=== PATIENT | male | born 1945 | race Caucasian/White ===

== ENCOUNTER → 2018-12-02 11:29 | Outpatient (CLI) | payer MEDICARE, OTHER, SELFPAY ==
--- NOTE | 2018-12-02 | DI.US.S_ITS ---
PROCEDURE: US ABD AORTA ANEURYSM SCREEN INDICATIONS: SCREENING TECHNIQUE: Real time scanning was performed of the aorta and iliac arteries, with image documentation. COMPARISON: None. FINDINGS: Aorta: Proximal aorta is not well-seen. Mid-aorta measures 1.9 cm. Distal aortic diameter is 1.6 cm. Iliac arteries: Right common iliac artery measures 1.0 cm. Left common iliac artery measures 1.1 cm. IMPRESSION: Unremarkable exam, noting proximal aorta is not visualized. Dictated by: Devika Ford M.D. on 12/02/2018 at 14:40 Approved by: Devika Ford M.D. on 12/02/2018 at 14:42
[2018-12-02 14:31] LABS: Alanine Aminotransferase 40 IU/L (21-72); Aspartate Aminotransferase 31 IU/L (17-59); BUN Creatinine Ratio 16.7 (6-22); Blood Urea Nitrogen 20 mg/dL (9-20); Calcium 9.7 mg/dL (8.4-10.2); Carbon Dioxide 31 mmol/L (22-32); Chloride 100 mmol/L (98-107); Cholesterol 147 mg/dL (140-199); Estimated Glomerular Filt Rate 59.3 mL/min (>60); Glucose 96 mg/dL (80-110); HDL Cholesterol 29 mg/dL (40-60); HEMOLYSIS < 15 (0-50); LDL Cholesterol Calculated 82 mg/dL (<100); Potassium 4.7 mmol/L (3.4-5.1); Sodium 139 mmol/L (137-145); Triglycerides 179 mg/dL (35-150)
[2018-12-02 15:03] LABS: Prostate Specific Antigen Scrn 0.672 ng/mL (0.1-4.0)
== END ==
PROVIDERS: PCP Internal Medicine; Visit Provider Internal Medicine
DX: Z13.6 Encounter for screening for cardiovascular disorders (principal); N18.3 Chronic kidney disease, stage 3 (moderate); E78.2 Mixed hyperlipidemia; Z12.5 Encounter for screening for malignant neoplasm of prostate
CPT/HCPCS: 36415; 76706; 80048; 80061; 84450; 84460; G0103

== ENCOUNTER → 2020-02-23 19:37 | Outpatient (ROUT) | payer MEDICARE, OTHER, SELFPAY ==
[2020-02-23 20:05] LABS: Alanine Aminotransferase 26 IU/L (<50); Albumin 4.2 g/dL (3.5-5.0); Albumin Globulin Ratio 1.7 (1.0-2.8); Alkaline Phosphatase 75 U/L (38-126); Aspartate Aminotransferase 37 IU/L (17-59); BUN Creatinine Ratio 17.8 (6-22); Bilirubin Total 0.8 mg/dL (0.2-1.3); Blood Urea Nitrogen 21 mg/dL (9-20); Calcium 9.7 mg/dL (8.4-10.2); Carbon Dioxide 28 mmol/L (22-32); Chloride 100 mmol/L (98-107); Cholesterol 162 mg/dL (140-199); Estimated Glomerular Filt Rate > 60.0 mL/min (>60); Globulin 2.5 g/dL (1.7-4.1); Glucose 111 mg/dL (80-110); HDL Cholesterol 29 mg/dL (40-60); HEMOLYSIS < 15 (0-50); LDL Cholesterol Calculated 90 mg/dL (<100); Potassium 3.9 mmol/L (3.4-5.1); Sodium 136 mmol/L (137-145); Total Protein 6.7 g/dL (6.3-8.2); Triglycerides 215 mg/dL (35-150)
[2020-02-25 07:14] LABS: PSA, Total 0.8 ng/mL (0.0-4.0)
== END ==
PROVIDERS: PCP Internal Medicine; Visit Provider Internal Medicine
DX: Z12.5 Encounter for screening for malignant neoplasm of prostate (principal); I10 Essential (primary) hypertension; E78.2 Mixed hyperlipidemia
CPT/HCPCS: 80053; 80061; 84153; 84154

== ENCOUNTER → 2020-10-25 13:22 | Outpatient (CLI) | payer MEDICARE, OTHER, SELFPAY ==
[2020-10-25 14:56] LABS: BUN Creatinine Ratio 12.4 (6-22); Blood Urea Nitrogen 15 mg/dL (9-20); Calcium 9.6 mg/dL (8.4-10.2); Carbon Dioxide 35 mmol/L (22-32); Chloride 100 mmol/L (98-107); Estimated Glomerular Filt Rate 58.5 mL/min (>60); Glucose 100 mg/dL (80-110); HEMOLYSIS 16 (0-50); Potassium 4.3 mmol/L (3.4-5.1); Sodium 138 mmol/L (137-145)
== END ==
PROVIDERS: PCP Internal Medicine; Referring Provider Nurse Practitioner; Visit Provider Nurse Practitioner
DX: R60.9 Edema, unspecified (principal); Z95.2 Presence of prosthetic heart valve
CPT/HCPCS: 36415; 80048

== ENCOUNTER → 2021-03-14 09:20 | Outpatient (CLI) | payer MEDICARE, OTHER, SELFPAY ==
[2021-03-14 10:27] LABS: Alanine Aminotransferase 23 IU/L (<50); Albumin 4.1 g/dL (3.5-5.0); Albumin Globulin Ratio 1.4 (1.0-2.8); Alkaline Phosphatase 72 U/L (38-126); Aspartate Aminotransferase 31 IU/L (17-59); Bilirubin Total 0.8 mg/dL (0.2-1.3); Blood Urea Nitrogen 16 mg/dL (9-20); Calcium 9.4 mg/dL (8.4-10.2); Carbon Dioxide 31 mmol/L (22-32); Chloride 102 mmol/L (98-107); Cholesterol 157 mg/dL (140-199); Estimated Glomerular Filt Rate > 60.0 mL/min (>60); Glucose 115 mg/dL (80-110); HDL Cholesterol 33 mg/dL (40-60); HEMOLYSIS 17 (0-50); LDL Cholesterol Calculated 86 mg/dL (<100); Potassium 4.2 mmol/L (3.4-5.1); Sodium 138 mmol/L (137-145); Total Protein 7.1 g/dL (6.3-8.2); Triglycerides 192 mg/dL (35-150)
== END ==
PROVIDERS: PCP Internal Medicine; Referring Provider Internal Medicine; Visit Provider Internal Medicine
DX: E78.5 Hyperlipidemia, unspecified (principal); Z12.5 Encounter for screening for malignant neoplasm of prostate; I10 Essential (primary) hypertension
CPT/HCPCS: 36415; 80053; 80061; 84153; G0103

== ENCOUNTER → 2021-09-12 13:36 | Outpatient (CLI) | payer MEDICARE, OTHER, SELFPAY ==
[2021-09-12 16:05] LABS: BUN Creatinine Ratio 13.7 (6-22); Blood Urea Nitrogen 16 mg/dL (9-20); Calcium 9.8 mg/dL (8.4-10.2); Carbon Dioxide 36 mmol/L (22-32); Chloride 96 mmol/L (98-107); Estimated Glomerular Filt Rate > 60.0 mL/min (>60); Glucose 96 mg/dL (80-110); HEMOLYSIS < 15 (0-50); Potassium 4.3 mmol/L (3.4-5.1); Sodium 137 mmol/L (137-145)
== END ==
PROVIDERS: PCP Internal Medicine; Referring Provider Nurse Practitioner; Visit Provider Nurse Practitioner
DX: I25.10 Atherosclerotic heart disease of native coronary artery without angina pectoris (principal)
CPT/HCPCS: 36415; 80048

== ENCOUNTER 2022-04-06 13:43 | Observation (INO) | payer MEDICARE, OTHER, SELFPAY ==
[2022-04-06 13:54] VITALS: BP 129/82; PULSE 78; RESP 18; TEMP 36.7; O2SAT 94; BMI 34.9
--- NOTE | 2022-04-06 14:17 | DI.CT.S_ITS ---
PROCEDURE: CT HEAD/BRAIN WO CON INDICATIONS: Falls TECHNIQUE: Noncontrast 4.5 mm thick angled axial sections acquired from the foramen magnum to the vertex, with coronal and sagittal reformats. For radiation dose reduction, the following was used: automated exposure control, adjustment of mA and/or kV according to patient size. COMPARISON: None. FINDINGS: Image quality: Degraded by patient motion artifact CSF spaces: Basal cisterns are patent. No extra-axial fluid collections. The ventricles are symmetric in size and shape. Brain: No intracranial bleeds or masses. There is cerebral volume loss for age, with resultant ventricular and sulcal prominence. There are periventricular and deep white matter chronic small vessel ischemic changes. 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 There is intracranial internal carotid artery and vertebral artery atherosclerosis. Skull and face: Calvarium and visualized facial bones appear intact, without suspicious lesions. Sinuses: Visualized sinuses and mastoids are clear. IMPRESSION: No acute intracranial disease process. Dictated by: Magda Stone MD, PhD on 04/06/2022 at 15:32 Approved by: Magda Stone MD, PhD on 04/06/2022 at 15:33
--- NOTE | 2022-04-06 14:17 | DI.RAD.S_ITS ---
PROCEDURE: XR CHEST 1V INDICATIONS: chest pain TECHNIQUE: One view of the chest was acquired. COMPARISON: [facility], CT, CT HEAD/BRAIN WO CON, 04/06/2022, 14:56. [facility], CR, CHEST 2 VIEW, 02/19/2014, 18:19. [facility], CR, CHEST 2 VIEW, 03/25/2015, 15:21. FINDINGS: Surgical changes and devices: Sternotomy wires are seen. Lungs and pleura: On this semiupright portable chest examination, no large pneumothorax can be seen. There is blunting of the costophrenic angles, left worse than right. Generalized interstitial prominence can be seen. Low lung volumes are noted. This causes a crowded appearance to the lung markings and limits evaluation. Mediastinum: Mediastinal contours appear normal. Heart size is moderately enlarged. Atherosclerotic calcification of the aortic arch is noted. Bones and chest wall: No suspicious bony lesions. Age-appropriate bony degenerative changes are seen. Overlying soft tissues appear unremarkable. IMPRESSION: Moderate cardiomegaly with interstitial prominence and pleural effusions. Please correlate with patient presentation, physical examination findings, and laboratory values for congestive heart failure. Dictated by: Chong Araiza M.D. on 04/06/2022 at 15:45 Approved by: Chong Araiza M.D. on 04/06/2022 at 15:46
[2022-04-06 14:31] LABS: Add Manual Diff / Slide Review NO; Basophils Absolute Auto 100 /uL (0-100); Basophils Percent Auto 0.5 % (0-2); Eosinophils Absolute Auto 300 /uL (0-450); Eosinophils Percent Auto 2.3 % (2-4); Hematocrit 47.9 % (41-53); Hemoglobin 15.9 g/dL (13.5-17.5); Lymphocytes Absolute Auto 1300 /uL (1100-4500); Lymphocytes Percent Auto 11.7 % (25-40); Mean Corpuscular HGB Conc 33.1 % (30-36); Mean Corpuscular Hemoglobin 28.4 PG (26-34); Mean Corpuscular Volume 85.9 fL (80-100); Monocytes Absolute Auto 1600 /uL (0-900); Monocytes Percent Auto 14.3 % (3-14); Neutrophils Absolute Auto 8000 /uL (1500-7000); Neutrophils Percent Auto 71.2 % (50-75); Platelet Count 129 X10^3/uL (150-400); Red Blood Cell Count 5.58 X10^6/uL (4.5-5.9); White Blood Cell Count 11.2 X10^3/uL (4.5-11.0)
[2022-04-06 14:39] LABS: COVID19 -Nasal RAPID Negative (Negative)
[2022-04-06 14:44] LABS: Alanine Aminotransferase 28 IU/L (<50); Albumin 4.2 g/dL (3.5-5.0); Albumin Globulin Ratio 1.3 (1.0-2.8); Alkaline Phosphatase 80 U/L (38-126); Aspartate Aminotransferase 91 IU/L (17-59); BUN Creatinine Ratio 15.4 (6-22); Bilirubin Total 1.1 mg/dL (0.2-1.3); Blood Urea Nitrogen 23 mg/dL (9-20); Calcium 8.8 mg/dL (8.4-10.2); Carbon Dioxide 30 mmol/L (22-32); Chloride 98 mmol/L (98-107); Estimated Glomerular Filt Rate 48 mL/min (>60); Globulin 3.2 g/dL (1.7-4.1); Glucose 124 mg/dL (80-110); HEMOLYSIS < 15 (0-50); Lipase 59 U/L (23-300); Magnesium 2.3 mg/dL (1.6-2.3); Potassium 4.1 mmol/L (3.4-5.1); Sodium 134 mmol/L (137-145); Total Protein 7.4 g/dL (6.3-8.2)
[2022-04-06 14:54] LABS: Troponin I 0.099 ng/mL (0.01-0.034)
[2022-04-06 15:01] LABS: Creatine Kinase 7057 U/L (55-170)
[2022-04-06 15:16] LABS: CKMB % Relative Index 0.1 % (1.5-5.0); Creatine Kinase MB 5.32 ng/mL (<2.37)
[2022-04-06] MEDS: SODIUM CHLORIDE 0.9% 1,000 ML 1000 ML IV (15:46)
[2022-04-06 15:55] VITALS: O2SAT 95
[2022-04-06 15:56] VITALS: BP 111/56; PULSE 73; RESP 25; O2SAT 95
[2022-04-06 16:00] VITALS: BP 115/58; PULSE 70; RESP 30; O2SAT 95
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
[2022-04-06 17:16] LABS: Troponin I 0.077 ng/mL (0.01-0.034)
[2022-04-06 17:44] LABS: NT-proBNP (BNP-Adult 18+) 1970 pg/mL (<450)
[2022-04-06] MEDS: SODIUM CHLORIDE 0.9% 1,000 ML 150 ML IV (18:17)
[2022-04-06 18:20] VITALS: BMI 34.9
[2022-04-06 18:52] VITALS: BMI 34.9
[2022-04-06 19:45] VITALS: BP 156/94; PULSE 76; RESP 20; TEMP 36.6; O2SAT 94
[2022-04-06] MEDS: carvediloL 3.125 MG TABLET 6.25 MG PO (20:31)
[2022-04-06] MEDS: HEPARIN 5,000 UNIT/ML VIAL 5000 UNIT SUBCUT (20:31)
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
[2022-04-07 04:01] VITALS: BP 136/74; PULSE 81; RESP 22; TEMP 36.9; O2SAT 95
[2022-04-07 04:24] VITALS: O2SAT 98
[2022-04-07] MEDS: ALBUTEROL/IPRATROPIUM 3 ML AMPUL INH (04:24)
[2022-04-07 06:02] LABS: Add Manual Diff / Slide Review NO; Basophils Absolute Auto 100 /uL (0-100); Basophils Percent Auto 0.8 % (0-2); Eosinophils Absolute Auto 400 /uL (0-450); Hematocrit 46.6 % (41-53); Hemoglobin 15.5 g/dL (13.5-17.5); Lymphocytes Absolute Auto 1200 /uL (1100-4500); Lymphocytes Percent Auto 14.1 % (25-40); Mean Corpuscular HGB Conc 33.2 % (30-36); Mean Corpuscular Hemoglobin 28.6 PG (26-34); Monocytes Absolute Auto 1100 /uL (0-900); Monocytes Percent Auto 13.2 % (3-14); Neutrophils Absolute Auto 5700 /uL (1500-7000); Neutrophils Percent Auto 66.9 % (50-75); Platelet Count 121 X10^3/uL (150-400); Red Blood Cell Count 5.41 X10^6/uL (4.5-5.9); Red Cell Distribution Width 14.8 % (11.6-14.8); White Blood Cell Count 8.5 X10^3/uL (4.5-11.0)
[2022-04-07 06:13] LABS: BUN Creatinine Ratio 18.1 (6-22); Blood Urea Nitrogen 23 mg/dL (9-20); Calcium 8.8 mg/dL (8.4-10.2); Carbon Dioxide 29 mmol/L (22-32); Chloride 101 mmol/L (98-107); Estimated Glomerular Filt Rate 58 mL/min (>60); Glucose 100 mg/dL (80-110); HEMOLYSIS < 15 (0-50); Potassium 3.9 mmol/L (3.4-5.1); Sodium 135 mmol/L (137-145)
[2022-04-07 06:23] LABS: Troponin I 0.058 ng/mL (0.01-0.034)
[2022-04-07 08:16] VITALS: BP 154/102; PULSE 78
[2022-04-07] MEDS: FUROSEMIDE 20 MG TABLET PO (08:16)
[2022-04-07] MEDS: carvediloL 3.125 MG TABLET 6.25 MG PO (08:16)
[2022-04-07] MEDS: ASPIRIN EC 81 MG TABLET PO (08:16)
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
--- NOTE | 2022-04-07 09:39 | PC.NURSE ---
Day shift: paperwork signed and all questions answered. Has all personal belongings. No new MD scripts. Taken to car via WC by this senior mortgage underwriter at approx 0930. Pt is driving himself home. Denies any chest pain or nausea.
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
== END 2022-04-07 09:41 | disposition home or self-care (01) ==
LOC: ED 17:47 → AC 18:05
PROVIDERS: Family Medicine; Admitting Provider Student in an Organized Health Care Education/Training Program; Emergency Provider Emergency Medicine; PCP Internal Medicine; Referring Provider Emergency Medicine; Visit Provider Student in an Organized Health Care Education/Training Program
DX: M62.82 Rhabdomyolysis (principal); N17.9 Acute kidney failure, unspecified; R77.8 Other specified abnormalities of plasma proteins; I10 Essential (primary) hypertension; R29.6 Repeated falls; Z95.2 Presence of prosthetic heart valve; Z20.822 Contact with and (suspected) exposure to COVID-19
CPT/HCPCS: 36415; 70450; 71045; 80048; 80053; 82550; 82553; 83690; 83735; 83880; 84484; 85025; 87635; 93005; 94640; 94660; 94762; 96360; 96361; 96365; 99285; C9803; G0378; J1644

== ENCOUNTER → 2023-04-04 11:50 | Outpatient (CLI) | payer MEDICARE, OTHER, SELFPAY ==
--- NOTE | 2023-04-04 11:55 | DI.RAD.S_ITS ---
PROCEDURE: XR KNEE RT 3V INDICATIONS: Right knee swelling TECHNIQUE: 3 views of the knee were acquired. COMPARISON: None. FINDINGS: Bones: No fractures or dislocations. No suspicious bony lesions. Mild osteoarthritic changes. Soft tissues: No joint effusion. Severe atherosclerotic calcifications. Prepatellar soft tissue swelling. IMPRESSION: 1. Mild osteoarthritis. 2. Prepatellar soft tissue swelling. Dictated by: Brisa Mayorga M.D. on 04/04/2023 at 15:06 Approved by: Brisa Mayorga M.D. on 04/04/2023 at 15:08
== END ==
PROVIDERS: Referring Provider Nurse Practitioner Family; Visit Provider Nurse Practitioner Family
DX: M17.11 Unilateral primary osteoarthritis, right knee (principal); M25.461 Effusion, right knee
CPT/HCPCS: 73562

== ENCOUNTER → 2023-06-05 07:27 | Outpatient (CLI) | payer MEDICARE, OTHER, SELFPAY ==
[2023-06-05 08:27] LABS: Hemoglobin A1C% w Est Avg Glu 6.5 % (4.0-6.0)
[2023-06-05 08:48] LABS: Alanine Aminotransferase 26 IU/L (<50); Albumin Globulin Ratio 1.6 (1.0-2.8); Alkaline Phosphatase 63 U/L (38-126); Aspartate Aminotransferase 26 IU/L (17-59); BUN Creatinine Ratio 14.4 (6-22); Bilirubin Total 0.7 mg/dL (0.2-1.3); Blood Urea Nitrogen 16 mg/dL (9-20); Calcium 9.3 mg/dL (8.4-10.2); Carbon Dioxide 31 mmol/L (22-32); Chloride 101 mmol/L (98-107); Cholesterol 176 mg/dL (140-199); Estimated Glomerular Filt Rate > 60 mL/min (>60); Globulin 2.5 g/dL (1.7-4.1); Glucose 111 mg/dL (80-110); HDL Cholesterol 36 mg/dL (40-60); HEMOLYSIS < 15 (0-50); LDL Cholesterol Calculated 109 mg/dL (<100); Potassium 4.1 mmol/L (3.4-5.1); Sodium 138 mmol/L (137-145); Total Protein 6.5 g/dL (6.3-8.2); Triglycerides 157 mg/dL (35-150)
== END ==
PROVIDERS: PCP Physician Assistant; Referring Provider Physician Assistant; Visit Provider Physician Assistant
DX: R73.09 Other abnormal glucose (principal); E78.2 Mixed hyperlipidemia; N18.31 Chronic kidney disease, stage 3a
CPT/HCPCS: 36415; 80053; 80061; 83036

== ENCOUNTER 2023-06-20 11:15 | Inpatient (IN) | payer MEDICARE, OTHER, SELFPAY ==
[2023-06-20] VITALS (24 sets, daily range): BP systolic 116–170; BP diastolic 56–87; PULSE 67–76; RESP 16–29; TEMP 36–36.6; O2SAT 92–96; BMI 34.9
--- NOTE | 2023-06-20 11:25 | DI.RAD.S_ITS ---
PROCEDURE: XR CHEST 1V INDICATIONS: Possible stroke TECHNIQUE: One view of the chest was acquired. COMPARISON: [facility], CR, XR CHEST 1V, 04/06/2022, 15:03. FINDINGS: Surgical changes and devices: Status post median sternotomy. Lungs and pleura: Lungs are clear. No pleural effusions or pneumothorax. Mediastinum: Mediastinal contours appear normal. Heart size is enlarged. Bones and chest wall: No suspicious bony lesions. Overlying soft tissues appear unremarkable. IMPRESSION: Portable chest within normal limits for age. Dictated by: Eloy Mcgraw M.D. on 06/20/2023 at 12:08 Approved by: Eloy Mcgraw M.D. on 06/20/2023 at 12:11
--- NOTE | 2023-06-20 11:25 | DI.CT.S_ITS ---
PROCEDURE: CT HEAD/BRAIN WO CON INDICATIONS: slurred speech TECHNIQUE: Noncontrast 4.5 mm thick angled axial sections acquired from the foramen magnum to the vertex, with coronal and sagittal reformats. For radiation dose reduction, the following was used: automated exposure control, adjustment of mA and/or kV according to patient size. COMPARISON: [facility], CR, XR CHEST 1V, 06/20/2023, 11:28. [facility], CT, HEAD WITHOUT CONTRAST, 02/19/2014, 20:01. [facility], CT, CT HEAD/BRAIN WO CON, 04/06/2022, 14:56. FINDINGS: Image quality: This examination is limited by involuntary motion artifact. CSF spaces: Basal cisterns are patent. No extra-axial fluid collections. The ventricles are symmetric in size and shape. Brain: No intracranial bleeds or masses. There is cerebral volume loss for age, with resultant ventricular and sulcal prominence. There are periventricular and deep white matter chronic small vessel ischemic changes. There is intracranial internal carotid artery atherosclerosis. Skull and face: Calvarium and visualized facial bones appear intact, without suspicious lesions. Sinuses: Visualized sinuses and mastoids are clear. IMPRESSION: No jason acute abnormality is seen on this noncontrast head CT. No acute intracranial hemorrhage is seen. If there is strong clinical suspicion for an acute stroke, please consider a brain MRI for further evaluation, as it is more sensitive (assuming that there is no contraindication to MRI). Dictated by: Chong Araiza M.D. on 06/20/2023 at 10:52 Approved by: Chong Araiza M.D. on 06/20/2023 at 10:53
[2023-06-20 11:48] LABS: Add Manual Diff / Slide Review NO; Basophils Absolute Auto 0 /uL (0-100); Basophils Percent Auto 0.5 % (0-2); Eosinophils Absolute Auto 200 /uL (0-450); Eosinophils Percent Auto 2.7 % (2-4); Hematocrit 49.6 % (41-53); Hemoglobin 16.9 g/dL (13.5-17.5); Lymphocytes Absolute Auto 1500 /uL (1100-4500); Lymphocytes Percent Auto 17.5 % (25-40); Mean Corpuscular HGB Conc 34.1 % (30-36); Mean Corpuscular Hemoglobin 29.2 PG (26-34); Mean Corpuscular Volume 85.6 fL (80-100); Monocytes Absolute Auto 900 /uL (0-900); Monocytes Percent Auto 10.6 % (3-14); Neutrophils Absolute Auto 5700 /uL (1500-7000); Neutrophils Percent Auto 68.7 % (50-75); Platelet Count 148 X10^3/uL (150-400); Red Blood Cell Count 5.79 X10^6/uL (4.5-5.9); Red Cell Distribution Width 14.9 % (11.6-14.8); White Blood Cell Count 8.3 X10^3/uL (4.5-11.0)
[2023-06-20 12:04] LABS: Prothrombin Time 11.5 SECONDS (10.1-12.7)
--- NOTE | 2023-06-20 12:04 | ED.NEUROSD ---
HPI - Neuro Symptoms/Deficit General Chief Complaint: Neuro Symptoms/Deficit Stated Complaint: Weakness. Time Seen by Provider: 06/20/23 11:27 Source: patient Mode of arrival: Ambulatory History of Present Illness HPI Narrative: Patient is a 78-year-old male who is here for evaluation of weakness, balance issues potentially some speech issues. He states he woke up yesterday morning with the symptoms. He felt like he went to bed the night before without any specific symptoms. He is never had anything like this in the past. He thinks that maybe he has rhabdo. He states that a year so ago he had rhabdo and he had muscle weakness during that time although he does not have any specific inciting event that would cause him to have rhabdo today. He denies chest pain, shortness of breath, abdominal pain. No fevers. No headache. No vision changes. Difficult for him to describe his weakness just generally had a difficult time getting out of bed this morning. Also has a difficult time explaining his balance issues as he is able to walk but feels like he can not get around as much as what he can. No specific trauma. On Anticoagulants: No Related Data Home Medications Medication Instructions Recorded Confirmed carvedilol 6.25 mg tablet (Coreg) 6.25 mg PO BID ##0 09/21/16 04/04/23 furosemide 20 mg tablet (Lasix) 20 mg PO QDAY ##0 09/21/16 04/04/23 ascorbic acid (vitamin C) PO 03/26/23 04/04/23 aspirin 81 mg tablet,delayed 81 mg PO DAILY 03/26/23 04/04/23 release (Adult Aspirin Regimen) atorvastatin 20 mg tablet 20 mg PO DAILY 03/26/23 04/04/23 potassium chloride 10 mEq meq PO 03/26/23 04/04/23 tablet,extended release(part/cryst) (Klor-Con M) tamsulosin 0.4 mg capsule 0.4 mg PO DAILY 03/26/23 04/04/23 vitamin B complex [B PO 03/26/23 04/04/23 Complex-Vitamin B12] zinc acetate PO 03/26/23 04/04/23 Previous Rx's Medication Instructions Recorded methylprednisolone 4 mg tablets in See Rx Instructions PO PER PKG DIR 03/26/23 a dose pack (Medrol (Harry)) #21 ea Allergies Allergy/AdvReac Type Severity Reaction Status Date / Time bee venom protein (honey bee) Allergy Mild localzed Verified 04/04/23 11:29 swelling adhesive tape Allergy Verified 04/04/23 11:29 cat dander Allergy Verified 04/04/23 11:29 dog dander Allergy Verified 04/04/23 11:29 mold Allergy Verified 04/04/23 11:29 pollen extracts Allergy Verified 04/04/23 11:29 Review of Systems Review of Systems ROS Unobtainable: All systems reviewed & are unremarkable except as noted in HPI and below Hematologic/Lymphatic On Anticoagulants: No Patient History Medical History Aortic stenosis Hypertension Endocarditis Surgical History History of aortic valve replacement History of bilateral hip arthroplasty History of cataract surgery History of tonsillectomy Family History Mother Congestive heart failure Father Congestive heart failure Social History Smoking Status: Former smoker alcohol intake: current Smoking Status: Former smoker alcohol intake frequency: other Substance Use Type: does not use Exam Initial Vital Signs Initial Vital Signs: Vital Signs Blood Pressure 167/84 H 06/20/23 11:15 Const General: cooperative, comfortable and No ill appearing HENMT Head: normal to inspection and normocephalic Resp Effort & Inspection: normal respiratory effort Auscultation: clear to auscultation bilaterally Cardio Rate: regular rate Rhythm: regular rhythm Neuro General: patient alert, patient awake, patient oriented x3 and moves all extremities Cranial Nerves: CN's II-XI intact bilaterally Cognition: normal cognition Speech: abnormal speech Sensory Exam: no sensory deficits noted Extrem General: normal to inspection and capillary refill normal Scores GCS Britton coma scale eye opening: Spontaneous Britton coma scale verbal response: Orientated Britton coma scale motor response: Obey commands Britton coma scale total score: 15 NIH Stroke Scale Level of Conciousness: Alert, keenly responsive Ask month/age: Answers both questions correctly. Open/close eyes, close hand: Performs both tasks correctly Best gaze horizontal: Normal Visual pandey: No visual loss Facial palsy: Normal symetrical movement Left arm drift: No drift for full 10 sec Right arm drift: No drift for full 10 sec Left leg drift: No drift for full 5 sec Right leg drift: No drift for full 5 sec Limb ataxia: Present in one limb (Left leg) Sensory on face/arms/legs: Normal, no sensory loss Best language: Mild to moderate, slurs some words Dysarthria: Mild to mod,some slurring Extinction or inattention: No abnormality Total NIH Stroke scale score: 3 Course Orders Ordered: ED Orders 06/20/23 11:25 CT head/brain wo con Stat XR chest 1V Stat 06/20/23 11:35 Complete Blood Count AUTO DIFF Stat Comprehensive Metabolic Panel Stat ETOH [Ethanol (ETOH)] Stat Magnesium Stat PTT Partial Thromboplastin Nick Stat Prothrombin Time INR Stat Troponin & CK Cardiac Panel Stat 06/20/23 12:00 Urinalysis and Microscopic Stat 06/20/23 12:12 CT angio head and neck Stat 06/20/23 12:38 EKG-12 Lead Stat 06/20/23 13:50 Troponin & CK Cardiac Panel Stat Ondansetron HCl (Ondansetron 4 Mg/2 Ml Inj) 4 mg IV NOW PRN PRN Reason: Nausea And Vomiting Ondansetron HCl (Ondansetron 4 Mg Odt) 4 mg SL NOW PRN PRN Reason: Nausea And Vomiting Vital Signs Vital signs: Vital Signs - 8 hr 06/20/23 11:15 06/20/23 11:25 06/20/23 11:30 Temperature 97.9 F Pulse Rate 76 70 Respiratory Rate 17 Blood Pressure 167/84 H 167/84 H Pulse Oximetry 96 95 Oxygen Delivery Method Room Air Room Air 06/20/23 11:45 06/20/23 12:00 06/20/23 12:28 Temperature Pulse Rate 74 68 73 Respiratory Rate Blood Pressure 162/85 H 148/78 H Pulse Oximetry 95 93 94 Oxygen Delivery Method Room Air Room Air 06/20/23 12:30 06/20/23 12:34 06/20/23 12:35 Temperature Pulse Rate 75 73 Respiratory Rate Blood Pressure 151/86 H Pulse Oximetry 93 94 Oxygen Delivery Method 06/20/23 12:35 Temperature Pulse Rate Respiratory Rate Blood Pressure 162/87 H Pulse Oximetry Oxygen Delivery Method MDM - Neuro Symptoms/Deficit Lab Data Attestation: I reviewed the patient's lab results. 06/20/23 11:35 06/20/23 11:35 Labs: Lab Results 06/20/23 06/20/23 06/20/23 Range/Units 11:35 12:00 13:50 WBC 8.3 (4.5-11.0) X10^3/uL RBC 5.79 (4.5-5.9) X10^6/uL Hgb 16.9 (13.5-17.5) g/dL Hct 49.6 (41-53) % MCV 85.6 (80-100) fL MCH 29.2 (26-34) PG MCHC 34.1 (30-36) % RDW 14.9 H (11.6-14.8) % Plt Count 148 L (150-400) X10^3/uL Neut % (Auto) 68.7 (50-75) % Lymph % (Auto) 17.5 L (25-40) % [place] % (Auto) 10.6 (3-14) % Eos % (Auto) 2.7 (2-4) % Baso % (Auto) 0.5 (0-2) % Neut # (Auto) 5700 (4649-8600) /uL Lymph # (Auto) 1500 (0275-5324) /uL [place] # (Auto) 900 (0-900) /uL Eos # (Auto) 200 (0-450) /uL Baso # (Auto) 0 (0-100) /uL PT 11.5 (10.1-12.7) SECONDS INR 1.0 (0.9-1.3) APTT 34 (26-36) SECONDS Sodium 137 (137-145) mmol/L Potassium 3.8 (3.4-5.1) mmol/L Chloride 100 (98-107) mmol/L Carbon Dioxide 28 (22-32) mmol/L BUN 23 H (9-20) mg/dL Creatinine 1.23 (0.66-1.25) mg/dL Estimated GFR > 60 (>60) mL/min BUN/Creatinine Ratio 18.7 (6-22) Glucose 125 H (80-110) mg/dL Calcium 9.6 (8.4-10.2) mg/dL Magnesium 2.0 (1.6-2.3) mg/dL Total Bilirubin 1.0 (0.2-1.3) mg/dL AST 24 (17-59) IU/L ALT 18 (<50) IU/L Alkaline Phosphatase 75 (38-126) U/L Total Creatine Kinase 31 L 33 L (55-170) U/L Troponin I 0.156 H* 0.153 H* (0.01-0.034) ng/mL Total Protein 7.4 (6.3-8.2) g/dL Albumin 4.3 (3.5-5.0) g/dL Globulin 3.1 (1.7-4.1) g/dL Albumin/Globulin Ratio 1.4 (1.0-2.8) Urine Color Yellow Urine Appearance Clear Urine pH 5.0 (4.5-8.0) Ur Specific [place] 1.015 (1.000-1.035) Urine Protein Negative (Negative) Urine Glucose (UA) Negative (Negative) g/dL Urine Ketones Negative (NEGATIVE) Urine Occult Blood Negative (Negative) Urine Nitrate Negative (Negative) Urine Bilirubin Negative (NEGATIVE) Urine Urobilinogen 0.2 (0.2) E.U./dL Ur Leukocyte Esterase Negative (NEGATIVE) Urine RBC None seen (0-5/HPF) Urine WBC 0-1/hpf (0-5/HPF) Ur Squamous Epith Cells 1-5 /hpf (0-5/HPF) Urine Bacteria None seen (None) Urine Mucus 1+ H (Negative) Ur Culture Indicated? Cult not indicated Ethyl Alcohol < 10 ( - 10) mg/dL Point of Care Testing Glucose POC [address] scan - head: Radiologist's Impression: PROCEDURE: CT HEAD/BRAIN WO CON INDICATIONS: slurred speech TECHNIQUE: Noncontrast 4.5 mm thick angled axial sections acquired from the foramen magnum to the vertex, with coronal and sagittal reformats. For radiation dose reduction, the following was used: automated exposure control, adjustment of mA and/or kV according to patient size. COMPARISON: [facility], CR, XR CHEST 1V, 06/20/2023, 11:28. [facility], CT, HEAD WITHOUT CONTRAST, 02/19/2014, 20:01. [facility], CT, CT HEAD/BRAIN WO CON, 04/06/2022, 14:56. FINDINGS: Image quality: This examination is limited by involuntary motion artifact. CSF spaces: Basal cisterns are patent. No extra-axial fluid collections. The ventricles are symmetric in size and shape. Brain: No intracranial bleeds or masses. There is cerebral volume loss for age, with resultant ventricular and sulcal prominence. There are periventricular and deep white matter chronic small vessel ischemic changes. There is intracranial internal carotid artery atherosclerosis. Skull and face: Calvarium and visualized facial bones appear intact, without suspicious lesions. Sinuses: Visualized sinuses and mastoids are clear. IMPRESSION: No jason acute abnormality is seen on this noncontrast head CT. No acute intracranial hemorrhage is seen. If there is strong clinical suspicion for an acute stroke, please consider a brain MRI for further evaluation, as it is more sensitive (assuming that there is no contraindication to MRI). Chest x-ray: Radiologist's Impression: PROCEDURE: XR CHEST 1V INDICATIONS: Possible stroke TECHNIQUE: One view of the chest was acquired. COMPARISON: [facility], CR, XR CHEST 1V, 04/06/2022, 15:03. FINDINGS: Surgical changes and devices: Status post median sternotomy. Lungs and pleura: Lungs are clear. No pleural effusions or pneumothorax. Mediastinum: Mediastinal contours appear normal. Heart size is enlarged. Bones and chest wall: No suspicious bony lesions. Overlying soft tissues appear unremarkable. IMPRESSION: Portable chest within normal limits for age. CTA - brain/neck: Radiologist's Impression: PROCEDURE: CT ANGIO HEAD AND NECK INDICATIONS: Dysarthria and weakness TECHNIQUE: After the administration of intravenous contrast, 1 mm thick sections acquired from the aortic arch through the [place]. 3-dimensional eghfges-fttnnllis-rpyxytegdx (MIP) and/or volume rendering reformats were acquired of the central intracranial vasculature and neck separately. For radiation dose reduction, the following was used: automated exposure control, adjustment of mA and/or kV according to patient size. COMPARISON: [facility], CT, CT HEAD/BRAIN WO CON, 06/20/2023, 11:39. [facility], CT, CT HEAD/BRAIN WO CON, 04/06/2022, 14:56. FINDINGS: Image quality: Limited by bolus timing, with venous contamination. BRAIN: CSF spaces: Ventricles are normal in size and shape. Basal cisterns are patent. No extra-axial fluid collections. Brain: No significant abnormality of the brain can be seen. Skull and face: Calvarium and facial bones appear intact, without suspicious lesions. Orbits appear normal. Sinuses: Sinuses and mastoids are clear. HEAD CT ANGIOGRAPHY: Anterior circulation: Intracranial internal carotid arteries are normal in size and flow. The flow within the paired anterior cerebral arteries is normal and symmetric. Focal narrowing can be seen involving the right M1 segment, with 60-70% narrowing. The left M1 segment is within normal limits. The flow within the more distal middle cerebral artery territories appears relatively symmetric, however. The anterior communicating artery is seen. No aneurysms are seen. Posterior circulation: Focal calcification can be seen involving the right V4 segment, with approximately 70% narrowing. Calcification is seen involving the left V4 segment, yet without a hemodynamically significant stenosis. There is a normal appearing basilar artery. There is a prominent right posterior communicating artery seen, with an accompanying diminutive right P1 segment. This is attributed to a type origin of the right posterior cerebral artery, which is considered to be a normal developmental variant of typically no clinical consequence. The flow within the posterior cerebral arteries is normal and symmetric. No aneurysms are seen. NECK CT ANGIOGRAPHY: Carotid system: The great vessels demonstrate a conventional anatomy as they arise from the aortic arch. The origins of the common carotid arteries appear patent. The common carotid arteries demonstrate normal caliber and courses. The bifurcation regions demonstrate atherosclerotic calcification and irregularity. There is this 60-70% narrowing involving the right proximal internal carotid artery. There is approximately 50% narrowing involving the left carotid artery origin. The more distal internal carotid arteries demonstrate normal caliber. At least moderate tortuosity can be seen involving the distal internal carotid arteries. Posterior circulation: The origins of the vertebral arteries both appear widely patent. The more superior extracranial portions of both vertebral arteries also demonstrate normal courses and calibers. They join to form a normal appearing basilar artery. Soft tissues: Visualized neck soft tissues demonstrate no suspicious abnormalities. Bones: No suspicious bony lesions. Visualized cervical spine appears normally aligned. Focal significant lower cervical spine degenerative change can be seen. Sternotomy wires are seen. IMPRESSION: Narrowing of the left M1 segment, 60-70%. Focal calcification with narrowing involving the right V4 segment, approximately 70%. There is 60-70% narrowing involving the right internal carotid artery origin, with 50% narrowing involving the left carotid artery origin. ECG Data Attestation: I personally reviewed and interpreted this ECG as follows: Interpretation: Sinus rhythm Ventricular rate is 71 Left axis deviation Left bundle-branch block No ST T wave changes MDM Narrative Medical decision making narrative: Patient is approximately 36 hours after the onset of his symptoms. Not a tPA candidate. Not a code IR candidate. Has been having weakness and also aphasia. Head CT is unremarkable. CTA shows narrowing of M1 segment but no jason occlusion. Patient does have an elevated troponin but it is unchanged with a 2 hour repeat. He has a nonischemic EKG and has no chest discomfort. Low suspicion for ACS. I did discuss the case with Dr. Carey hospitalist on-call who will admit for further evaluation to include an MRI. Discussed the need for admission with the patient who expressed understanding and agreement as well. Discharge Plan Departure Patient Disposition: Admitted As Inpatient Clinical Impression: Cerebrovascular accident, Aphasia Admit Date/Time: 06/20/23 14:46 Admit Provider: Mehrdad Carey
[2023-06-20 12:06] LABS: PTT Partial Thromboplastin Tim 34 SECONDS (26-36)
[2023-06-20 12:08] LABS: Alanine Aminotransferase 18 IU/L (<50); Albumin 4.3 g/dL (3.5-5.0); Albumin Globulin Ratio 1.4 (1.0-2.8); Alkaline Phosphatase 75 U/L (38-126); Aspartate Aminotransferase 24 IU/L (17-59); BUN Creatinine Ratio 18.7 (6-22); Blood Urea Nitrogen 23 mg/dL (9-20); Calcium 9.6 mg/dL (8.4-10.2); Carbon Dioxide 28 mmol/L (22-32); Chloride 100 mmol/L (98-107); Creatine Kinase 31 U/L (55-170); Estimated Glomerular Filt Rate > 60 mL/min (>60); Globulin 3.1 g/dL (1.7-4.1); Glucose 125 mg/dL (80-110); HEMOLYSIS < 15 (0-50); Potassium 3.8 mmol/L (3.4-5.1); Sodium 137 mmol/L (137-145); Total Protein 7.4 g/dL (6.3-8.2)
--- NOTE | 2023-06-20 12:12 | DI.CT.S_ITS ---
PROCEDURE: CT ANGIO HEAD AND NECK INDICATIONS: Dysarthria and weakness TECHNIQUE: After the administration of intravenous contrast, 1 mm thick sections acquired from the aortic arch through the [place]. 3-dimensional jbhlqpi-rknofattg-dnoojqwgkl (MIP) and/or volume rendering reformats were acquired of the central intracranial vasculature and neck separately. For radiation dose reduction, the following was used: automated exposure control, adjustment of mA and/or kV according to patient size. COMPARISON: [facility], CT, CT HEAD/BRAIN WO CON, 06/20/2023, 11:39. [facility], CT, CT HEAD/BRAIN WO CON, 04/06/2022, 14:56. FINDINGS: Image quality: Limited by bolus timing, with venous contamination. BRAIN: CSF spaces: Ventricles are normal in size and shape. Basal cisterns are patent. No extra-axial fluid collections. Brain: No significant abnormality of the brain can be seen. Skull and face: Calvarium and facial bones appear intact, without suspicious lesions. Orbits appear normal. Sinuses: Sinuses and mastoids are clear. HEAD CT ANGIOGRAPHY: Anterior circulation: Intracranial internal carotid arteries are normal in size and flow. The flow within the paired anterior cerebral arteries is normal and symmetric. Focal narrowing can be seen involving the right M1 segment, with 60-70% narrowing. The left M1 segment is within normal limits. The flow within the more distal middle cerebral artery territories appears relatively symmetric, however. The anterior communicating artery is seen. No aneurysms are seen. Posterior circulation: Focal calcification can be seen involving the right V4 segment, with approximately 70% narrowing. Calcification is seen involving the left V4 segment, yet without a hemodynamically significant stenosis. There is a normal appearing basilar artery. There is a prominent right posterior communicating artery seen, with an accompanying diminutive right P1 segment. This is attributed to a type origin of the right posterior cerebral artery, which is considered to be a normal developmental variant of typically no clinical consequence. The flow within the posterior cerebral arteries is normal and symmetric. No aneurysms are seen. NECK CT ANGIOGRAPHY: Carotid system: The great vessels demonstrate a conventional anatomy as they arise from the aortic arch. The origins of the common carotid arteries appear patent. The common carotid arteries demonstrate normal caliber and courses. The bifurcation regions demonstrate atherosclerotic calcification and irregularity. There is this 60-70% narrowing involving the right proximal internal carotid artery. There is approximately 50% narrowing involving the left carotid artery origin. The more distal internal carotid arteries demonstrate normal caliber. At least moderate tortuosity can be seen involving the distal internal carotid arteries. Posterior circulation: The origins of the vertebral arteries both appear widely patent. The more superior extracranial portions of both vertebral arteries also demonstrate normal courses and calibers. They join to form a normal appearing basilar artery. Soft tissues: Visualized neck soft tissues demonstrate no suspicious abnormalities. Bones: No suspicious bony lesions. Visualized cervical spine appears normally aligned. Focal significant lower cervical spine degenerative change can be seen. Sternotomy wires are seen. IMPRESSION: Narrowing of the left M1 segment, 60-70%. Focal calcification with narrowing involving the right V4 segment, approximately 70%. There is 60-70% narrowing involving the right internal carotid artery origin, with 50% narrowing involving the left carotid artery origin. Additional findings: type origin of the right posterior cerebral artery Tortuous distal extracranial internal carotid arteries Lower cervical spine degenerative change Sternotomy wires Any quantitative measurements of stenosis were performed using NASCET criteria. Dictated by: Chong Araiza M.D. on 06/20/2023 at 11:56 Approved by: Chong Araiza M.D. on 06/20/2023 at 12:02
[2023-06-20 12:22] LABS: Troponin I 0.156 ng/mL (0.01-0.034)
[2023-06-20 12:26] LABS: Ethanol (ETOH) < 10 mg/dL
[2023-06-20 13:09] LABS: Appearance Urine UA CLEAR; Bilirubin Urine UA NEGATIVE (NEGATIVE); Color Urine UA YELLOW; Glucose Urine UA NEGATIVE (Negative); Ketones Urine UA NEGATIVE (NEGATIVE); Leukocyte Esterase Urine UA NEGATIVE (NEGATIVE); Nitrite Urine UA NEGATIVE (Negative); Occult Blood Urine UA NEGATIVE (Negative); Protein Urine UA NEGATIVE (Negative); Specific Gravity Urine UA 1.015 (1.000-1.035); Urobilinogen Urine UA 0.2 E.U./dL (0.2)
[2023-06-20 13:23] LABS: RBC Urine None Seen (0-5/HPF)
[2023-06-20 13:24] LABS: Bacteria Urine None Seen; Culture Indicated Urine Cult Not Indicated; Mucus Urine 1+ (Negative); Squamous Epithelial Cell Urine 1-5 /HPF (0-5/HPF); WBC Urine 0-1/HPF (0-5/HPF)
[2023-06-20 14:21] LABS: Creatine Kinase 33 U/L (55-170)
[2023-06-20 14:34] LABS: Troponin I 0.153 ng/mL (0.01-0.034)
--- NOTE | 2023-06-20 15:32 | PC.NURSE ---
Day shift: Pt in room at approx 1525 from ED. A&Ox4. Unsteady gait. Some word finding on admit. Oriented to room and call light. Agrees to not get OOB w/o help from staff. VS WNL. RA 97%. Denies any pain or nausea. Bed alarm is on for safety.
--- NOTE | 2023-06-20 16:12 | DI.MRI.S_ITS ---
PROCEDURE: MR HEAD/BRAIN WO CON INDICATIONS: stroke TECHNIQUE: Non-contrast axial T1 spin echo, axial T2 fast spin echo, sagittal and axial FLAIR, coronal T2 fast spin echo, axial gradient echo, axial diffusion and ADC through the brain. COMPARISON: [facility], CT, CT HEAD/BRAIN WO CON, 06/20/2023, 11:39. FINDINGS: Image quality: Motion degraded exam. CSF spaces: Ventricles appear symmetric in size and shape. Basal cisterns are patent. No extra-axial fluid collections. Brain: There are scattered small foci of restricted diffusion within the right frontal and parietal lobes consistent with acute infarcts. In the left frontal lobe there is a small area of increased signal on DWI without decreased signal on ADC, likely representing showing through. Restricted diffusion within the right paramidline elayne No intracranial bleeds or mass effects. There is cerebral volume loss for age. There are periventricular and deep white matter chronic small vessel ischemic changes as well as in the brainstem. Lacunar infarct in the right caudate body. Old small infarcts within the bilateral cerebral hemispheres. Normal intravascular flow voids are present. Few scattered foci of susceptibility artifact, likely sequela of prior chronic hypertensive microhemorrhages. Skull and face: Calvarial bone marrow is normal in signal. Bilateral lens replacements. Otherwise, the orbits are unremarkable. Sinuses: Small bilateral mastoid effusions. The paranasal sinuses are clear. IMPRESSION: 1. Scattered tiny foci of acute infarct within the right frontal and parietal lobe. Small acute infarct within the right paramedian elayne. Findings are favored to represent an embolic source. 2. Focus of elevated signal on DWI in the right frontal lobe is favored to represent T2 shine through and not acute infarct. 3. Eight fatigue global volume loss and chronic microvascular ischemic changes. Dictated by: Earnest Garcia M.D. on 06/20/2023 at 17:59 Approved by: Earnest Garcia M.D. on 06/20/2023 at 18:05
--- NOTE | 2023-06-20 16:32 | P.HP_ITS ---
History of Present Illness History of Present Illness Date Patient Seen: 06/20/23 Time Patient Seen: 16:32 Chief complaint: Weakness. Narrative: The patient is a 78-year-old male with no history of TIA or stroke. He presented with acute weakness since this morning and notes he had a hard time getting out of bed. He also notes that his speech was abnormal. This began yesterday morning was symptoms. The patient notes that the weakness and inability to move around have been persistent since yesterday. He does not give a clear specific history of aphasia. He also can not state that 1 arm or leg is weaker than the other. It sounds as though he was having axial weakness trying to get himself out of bed. He denies a fall, or headache. He also denies visual changes. He has no history of TIA or stroke. He does have a history of rhabdomyolysis in the past which felt similar with resulting generalized weakness. He does have a history of an aortic valve replacement x2 in [place]. He takes aspirin 81 mg daily. His NIH score in the ER was 3, it was 0 here. He has no neurologic complaints upon interview. [facility] Medical History Aortic stenosis Hypertension Endocarditis Surgical History History of aortic valve replacement History of bilateral hip arthroplasty History of cataract surgery History of tonsillectomy Family History Mother Congestive heart failure Father Congestive heart failure Social History Smoking Status: Former smoker alcohol intake: current Meds Home Medications and Allergies Home Medications Medication Instructions Recorded Confirmed Type carvedilol 6.25 mg tablet (Coreg) 6.25 mg PO BID ##0 09/21/16 04/04/23 History furosemide 20 mg tablet (Lasix) 20 mg PO QDAY ##0 09/21/16 04/04/23 History ascorbic acid (vitamin C) PO 03/26/23 04/04/23 History aspirin 81 mg tablet,delayed 81 mg PO DAILY 03/26/23 04/04/23 History release (Adult Aspirin Regimen) atorvastatin 20 mg tablet 20 mg PO DAILY 03/26/23 04/04/23 History methylprednisolone 4 mg tablets in See Rx Instructions PO PER PKG DIR 03/26/23 04/04/23 Rx a dose pack (Medrol (Harry)) #21 ea potassium chloride 10 mEq meq PO 03/26/23 04/04/23 History tablet,extended release(part/cryst) (Klor-Con M) tamsulosin 0.4 mg capsule 0.4 mg PO DAILY 03/26/23 04/04/23 History vitamin B complex [B PO 03/26/23 04/04/23 History Complex-Vitamin B12] zinc acetate PO 03/26/23 04/04/23 History Allergies Allergy/AdvReac Type Severity Reaction Status Date / Time bee venom protein (honey bee) Allergy Mild localzed Verified 04/04/23 11:29 swelling adhesive tape Allergy Verified 04/04/23 11:29 cat dander Allergy Verified 04/04/23 11:29 dog dander Allergy Verified 04/04/23 11:29 mold Allergy Verified 04/04/23 11:29 pollen extracts Allergy Verified 04/04/23 11:29 Review of Systems Review of Systems Narrative: All else reviewed and otherwise negative. Exam Vital Signs (past 8 hours): - 06/20/23 11:15 06/20/23 11:25 06/20/23 11:30 Temperature 97.9 F Pulse Rate 76 70 Respiratory Rate 17 Blood Pressure 167/84 H 167/84 H Pulse Oximetry 96 95 Oxygen Delivery Method Room Air Room Air Oxygen Flow Rate 06/20/23 11:45 06/20/23 12:00 06/20/23 12:28 Temperature Pulse Rate 74 68 73 Respiratory Rate Blood Pressure 162/85 H 148/78 H Pulse Oximetry 95 93 94 Oxygen Delivery Method Room Air Room Air Oxygen Flow Rate 06/20/23 12:30 06/20/23 12:34 06/20/23 12:35 Temperature Pulse Rate 75 73 Respiratory Rate Blood Pressure 151/86 H Pulse Oximetry 93 94 Oxygen Delivery Method Oxygen Flow Rate 06/20/23 12:35 06/20/23 12:48 06/20/23 12:48 Temperature Pulse Rate 75 Respiratory Rate Blood Pressure 162/87 H 170/86 H Pulse Oximetry 96 Oxygen Delivery Method Oxygen Flow Rate 06/20/23 13:00 06/20/23 13:01 06/20/23 13:01 Temperature Pulse Rate 71 76 Respiratory Rate Blood Pressure 158/80 H Pulse Oximetry 96 92 Oxygen Delivery Method Oxygen Flow Rate 06/20/23 13:11 06/20/23 13:11 06/20/23 13:15 Temperature Pulse Rate 72 70 Respiratory Rate 24 Blood Pressure 146/68 H Pulse Oximetry 96 95 Oxygen Delivery Method Oxygen Flow Rate 06/20/23 13:15 06/20/23 13:30 06/20/23 13:30 Temperature Pulse Rate 71 Respiratory Rate 24 Blood Pressure 120/56 L 124/66 Pulse Oximetry 94 Oxygen Delivery Method Oxygen Flow Rate 06/20/23 13:45 06/20/23 13:45 06/20/23 14:00 Temperature Pulse Rate 73 71 Respiratory Rate 23 16 Blood Pressure 118/57 L Pulse Oximetry 93 94 Oxygen Delivery Method Oxygen Flow Rate 06/20/23 14:00 06/20/23 14:15 06/20/23 14:15 Temperature Pulse Rate 69 Respiratory Rate 27 H Blood Pressure 116/76 119/76 Pulse Oximetry 94 Oxygen Delivery Method Oxygen Flow Rate 06/20/23 14:30 06/20/23 14:30 06/20/23 14:46 Temperature Pulse Rate 67 Respiratory Rate 24 Blood Pressure 119/59 L 149/74 H Pulse Oximetry 95 Oxygen Delivery Method Oxygen Flow Rate 06/20/23 14:46 06/20/23 15:00 06/20/23 15:00 Temperature Pulse Rate 68 71 Respiratory Rate 27 H 29 H Blood Pressure 137/76 Pulse Oximetry 95 Oxygen Delivery Method Oxygen Flow Rate 06/20/23 15:42 Temperature 97.0 F L Pulse Rate 73 Respiratory Rate 16 Blood Pressure 126/72 Pulse Oximetry 95 Oxygen Delivery Method Oxygen Flow Rate 0 Oxygen Delivery Method Room Air Oxygen Flow Rate 0 Narrative Exam Narrative: NAD, with slow but normal speech. EOMI, no facial droop. Neck is supple, no adenopathy. Lungs clear with normal effort CV RRR without G/R. He has a coarse systolic murmur at the base of the heart. Abdomen Soft, NT/ND No rash No leg edema His motor strength in arms and legs is symmetric. Negative pronator drift. Cranial nerves are grossly intact as well. Normal joints, normal peripheral pulses. Objective ECG Impression: Normal sinus rhythm, rate 71 with a left bundle. Imaging CT scan - head: Radiologist's impression: CT of the brain is negative for stroke. CTA reveals narrowing of the M1 segment but no EMPLOYMENT LAW SPECIALIST. The left carotid artery has a 60-70% internal stenosis. Labs 06/20/23 11:35 06/20/23 11:35 Labs: Laboratory Results - last 24 hr 06/20/23 06/20/23 06/20/23 11:35 12:00 13:50 WBC 8.3 RBC 5.79 Hgb 16.9 Hct 49.6 MCV 85.6 MCH 29.2 MCHC 34.1 RDW 14.9 H Plt Count 148 L Neut % (Auto) 68.7 Lymph % (Auto) 17.5 L [place] % (Auto) 10.6 Eos % (Auto) 2.7 Baso % (Auto) 0.5 Neut # (Auto) 5700 Lymph # (Auto) 1500 [place] # (Auto) 900 Eos # (Auto) 200 Baso # (Auto) 0 PT 11.5 INR 1.0 APTT 34 Sodium 137 Potassium 3.8 Chloride 100 Carbon Dioxide 28 BUN 23 H Creatinine 1.23 Estimated GFR > 60 BUN/Creatinine Ratio 18.7 Glucose 125 H Calcium 9.6 Magnesium 2.0 Total Bilirubin 1.0 AST 24 ALT 18 Alkaline Phosphatase 75 Total Creatine Kinase 31 L 33 L Troponin I 0.156 H* 0.153 H* Total Protein 7.4 Albumin 4.3 Globulin 3.1 Albumin/Globulin Ratio 1.4 Urine Color Yellow Urine Appearance Clear Urine pH 5.0 Ur Specific [place] 1.015 Urine Protein Negative Urine Glucose (UA) Negative Urine Ketones Negative Urine Occult Blood Negative Urine Nitrate Negative Urine Bilirubin Negative Urine Urobilinogen 0.2 Ur Leukocyte Esterase Negative Urine RBC None seen Urine WBC 0-1/hpf Ur Squamous Epith Cells 1-5 /hpf Urine Bacteria None seen Urine Mucus 1+ H Ur Culture Indicated? Cult not indicated Ethyl Alcohol < 10 Assessment & Plan Assessment & Plan narrative: 1. TIA versus stroke, present on admission and active. -we will treat with baby aspirin and atorvastatin, and obtain an MRI of the brain tonight to rule out infarct. We will monitor with neuro checks q.4 hours. 2. Hypertension, POA. -allow permissive hypertension tonight. Hold BP medications. 3. Aortic stenosis with AVR, POA and stable. Full code. Time Spent With Patient Time with patient: 30 to 49 minutes with 50% spent counseling/coordinating care
[2023-06-20] MEDS: SODIUM CHLORIDE 0.9% 1,000 ML 100 ML IV (16:48)
--- NOTE | 2023-06-20 16:54 | PC.NURSE ---
Day shift: Off unit for MRI at approx 1635.
[2023-06-20] MEDS: DOCUSATE 100 MG CAPSULE PO (20:54)
[2023-06-20] MEDS: SODIUM CHLORIDE 0.9% FLUSH 10 ML IV (20:54)
[2023-06-20] MEDS: ATORVASTATIN 20 MG TABLET 80 MG PO (20:54)
[2023-06-20] MEDS: HEPARIN 5,000 UNIT/ML VIAL 5000 UNIT SUBCUT (20:54)
[2023-06-20 21:41] LABS: Basophils Absolute Auto 0 /uL (0-100); Basophils Percent Auto 0.6 % (0-2); Eosinophils Absolute Auto 200 /uL (0-450); Eosinophils Percent Auto 2.7 % (2-4); Hematocrit 48.5 % (41-53); Hemoglobin 16.7 g/dL (13.5-17.5); Lymphocytes Absolute Auto 1600 /uL (1100-4500); Lymphocytes Percent Auto 20.1 % (25-40); Mean Corpuscular HGB Conc 34.5 % (30-36); Mean Corpuscular Hemoglobin 29.6 PG (26-34); Mean Corpuscular Volume 85.9 fL (80-100); Monocytes Absolute Auto 1000 /uL (0-900); Monocytes Percent Auto 12.8 % (3-14); Neutrophils Absolute Auto 5100 /uL (1500-7000); Neutrophils Percent Auto 63.8 % (50-75); Platelet Count 149 X10^3/uL (150-400); Red Blood Cell Count 5.64 X10^6/uL (4.5-5.9)
[2023-06-20 21:58] LABS: Add Manual Diff / Slide Review SLIDE REVIEW
[2023-06-20 21:59] LABS: Platelet Estimate Adeq
[2023-06-20 23:26] LABS: Hemoglobin A1C% w Est Avg Glu 6.9 % (4.0-6.0)
[2023-06-21 03:00] VITALS: BP 134/77; PULSE 73; RESP 16; TEMP 36.2; O2SAT 92
[2023-06-21 05:52] LABS: Alanine Aminotransferase 18 IU/L (<50); Albumin 3.9 g/dL (3.5-5.0); Albumin Globulin Ratio 1.2 (1.0-2.8); Alkaline Phosphatase 66 U/L (38-126); Aspartate Aminotransferase 23 IU/L (17-59); BUN Creatinine Ratio 20.8 (6-22); Blood Urea Nitrogen 21 mg/dL (9-20); Calcium 9.3 mg/dL (8.4-10.2); Carbon Dioxide 27 mmol/L (22-32); Chloride 99 mmol/L (98-107); Estimated Glomerular Filt Rate > 60 mL/min (>60); Globulin 3.2 g/dL (1.7-4.1); Glucose 104 mg/dL (80-110); HEMOLYSIS 17 (0-50); Potassium 3.5 mmol/L (3.4-5.1); Sodium 135 mmol/L (137-145); Total Protein 7.1 g/dL (6.3-8.2)
[2023-06-21 07:00] VITALS: BP 158/90; PULSE 72; RESP 18; TEMP 36.4; O2SAT 93
[2023-06-21] MEDS: POTASSIUM CHLORIDE 20 MEQ TAB 40 MEQ PO (07:41)
[2023-06-21] MEDS: ASPIRIN EC 81 MG TABLET PO (08:46)
[2023-06-21] MEDS: DOCUSATE 100 MG CAPSULE PO (08:47)
[2023-06-21] MEDS: HEPARIN 5,000 UNIT/ML VIAL 5000 UNIT SUBCUT (08:47)
[2023-06-21] MEDS: SODIUM CHLORIDE 0.9% FLUSH 10 ML IV (08:48)
--- NOTE | 2023-06-21 09:30 | PT.IIE ---
Current Diagnoses Transient cerebral ischemic attack, unspecified (06/20/23) Surgical History (Last Reviewed 03/26/23 @ 17:59 by Evette Carter PA-C) History of aortic valve replacement History of bilateral hip arthroplasty History of cataract surgery History of tonsillectomy Medical History (Last Reviewed 06/20/23 @ 12:16 by Ant Cortes DO) Aortic stenosis Endocarditis Hypertension Physical Therapy Inpatient Evaluation/Re-Eval M1 PT/OT-IP Prior Functional Status Start: 06/21/23 12:04 Freq: NEEDED Status: Active Protocol: Document 06/21/23 09:30 AB (Rec: 06/21/23 12:32 AB [email or web address]) Medical Review Prior Functional Status Medical History Reviewed Yes Communication able to make needs known Mobility and Gait pt stated that he is independent with all mobilities and ambulation without AD Social History Household Members none Living Arrangements House Number of Floors (Floors) One Floor Number of Stairs To Enter/Railing? ramp to enter Home Environment High Toilet,Walk in Shower Home Equipment Straight Cane,Hand Held Shower ,Tank Truck Milk Receiver,Grab Bars Near Toilet ,Grab Bars In Shower Additional Social History Comment pt stated that his sister can assist him if needed pt stated that he has a hospital bed M2 PT-IP Current Condition Start: 06/21/23 12:04 Freq: NEEDED Status: Active Protocol: Document 06/21/23 09:30 AB (Rec: 06/21/23 12:32 AB [id number]) Physical Therapy Current Condition Current Condition Evaluation Date 06/21/23 Treatment Diagnosis R CVA; difficulty in walking Onset Date 06/20/23 M3 PT-IP Subjective Start: 06/21/23 12:04 Freq: NEEDED Status: Active Protocol: Document 06/21/23 09:30 AB (Rec: 06/21/23 12:32 AB [email or web address]) Subjective Physical Therapy Visit Type Type Initial Evaluation Visit Start Time 09:30 Visit Stop Time 10:00 Total Visit Minutes 30 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 0 Physical Therapy Visit Comments Patient Comments agreeable to do PT M4 PT-IP Mobility and Gait Start: 06/21/23 12:04 Freq: NEEDED Status: Active Protocol: Document 06/21/23 09:30 AB (Rec: 06/21/23 12:32 AB [email or web address]) PT-Bed Mobility Assessment Supine to Sit Supine to Sit Moderate Assistance Sit to Supine Sit to Supine Standby Assistance PT-Transfer Assessment Sit to and From Stand Sit to and from Stand Contact Guard Assistance,1 Person Assistance,Use of Upper Extremities Equipment Transfer Assistive Device None,Gait Belt Orthotic/Prosthetic Devices or Brace: No Transfers Transfer Destination Bed,Chair Transfer Technique ambulated Transfer Ability Level of Assist Contact Guard Assistance, Minimal Assistance,Use of Upper Extremities Comments Mobility Comments pt sitting on the chair. agreeable to do PT. pt able to answer questions but with occasional unclear speech. completed sit to stand CGA and ambulated ~ 12 ft to EOB without AD CGA to min A. presents with antalgic waddling gait with increase lateral leaning to the R. completed sit to supine SBA. completed supine to sit mod A and cues with 3 attempts to complete task. pt has a hospital bed and may have HOB elevated to assist with bed mobility. pt unable to maintain sitting balance on EOB requiring mod to max A and max cues with posterior LOB. pt stated that it is because his feet cannot touch the floor. pt ambulated back to the chair without AD CGA to min A. educated pt on trunk control and balance. Assessed sitting balance with LE support on the floor. pt ambulated to window bench and able to sit SBA and able to maintain sitting balance SBA even with perturbations. pt ambulated in the hallway without AD CGA to min A. pt running into wall/door during ambulation. presents with increase lateral lean to the R and with unsteady waddling gait. Asked pt if he has vision problems and pt stated that his vision is 20/20. Assessed ambulation using SPC. educated pt on how to use SPC. pt completed ambulation ~ 40 ft using SPC SBA to CGA and continue to show unsteadiness. Assessed ambualtion using FWW and completed ~ 40 ft SBA with better pacing and steadiness. pt sat back on the chair. educated on safety and informed regarding AD recommendation. informed pt to use FWW for ambulation. pt understood. Left pt sitting on the chair with table and call light with him. Gait Assessment Gait Gait Assistance Required: Standby Assistance,Contact Guard Assist,Minimum Assistance Distance (Feet) 100 Able to Maintain Weight Bearing Status Yes During Gait Assistive Devices Assistive Device None,Gait Belt,Straight Cane, Front Wheeled Walker Orthotic/Prosthetic Devices or Brace: No Gait Deviations General Gait Pattern Antalgic,Ataxic,Decreased Stride Length,Decreased Feet Clearance Factors Limiting Gait Function Factors Limiting Gait Function Decreased Strength,Limited Range of Motion,Poor Balance, Poor Safety Awareness PT-Balance Assessment Sitting Balance and Reactions Static Sitting Balance Ability Good Dynamic Sitting Balance Ability Fair Standing Balance and Reactions Static Standing Balance Ability Good Dynamic Standing Balance Ability Fair Device Used without AD M5 PT-IP Objective Assessments Start: 06/21/23 12:04 Freq: NEEDED Status: Active Protocol: Document 06/21/23 09:30 AB (Rec: 06/21/23 12:32 AB [email or web address]) Orientation Orientation/Cognition Level of Alertness Alert Strength Lower Extremity Strength Assessment Within Functional Limits Muscle Tone Muscle Tone WNL Yes M6 PT-IP Treatment Start: 06/21/23 12:04 Freq: NEEDED Status: Active Protocol: Document 06/21/23 09:30 AB (Rec: 06/21/23 12:32 AB [email or web address]) Physical Therapy Treatment Education Education Provided Safety M7 PT-IP Assessment and Plan Start: 06/21/23 12:04 Freq: NEEDED Status: Active Protocol: Document 06/21/23 09:30 AB (Rec: 06/21/23 12:32 AB [email or web address]) PT Summary Assessment and Plan Potential Rehabilitation Potential Fair Status of Condition at Evaluation Stable Summary Impairments Pain,ROM,Strength,Balance, Coordination,Sensation,Tone, Cognition,Bed Mobility, Transfers,Gait,Activity Tolerance Assessment Summary pt is a 78 y/o male who presented to the ED for weakness. pt found to have a right frontal and parietal embolic stroke. pt requiring mod A for supine to sit, CGA to min A with ambulation without AD, SBA to CGA with SPC and SBA with FWW. pt with tendency to run into things/ denny during ambulation. Recommending use of FWW at this time. pt will continue PT while here in the hospital to address mobility and balance issues. pt will benefit from outpt PT. Goals Bed Mobility Goal Independent Transfer Goal Independent Gait Goal Independent Gait Distance 300 Days to Meet Goals 10 Frequency of Treatment Frequency Of Treatment Once a Day Treatment Plan Physical Therapy Treatment Plan Bed Mobility Training,Transfer Training,Gait Training, Therapeutic Exercise,Balance Retraining,Discharge Planning, Hot or Cold Pack,Neuromuscular Re-ed,Coordination Retraining ,Manual Therapy Precautions Other Precautions falls Recommendations To Nursing Amount of Assist Needed 1 Person Assist Discharge Recommendations PT Discharge Recommendations Home with Assistance, Outpatient PT Equipment Needed for Home Before FWW Discharge Transportation Needs at Discharge Private Vehicle
--- NOTE | 2023-06-21 10:37 | PM.PN.1 ---
Subjective Subjective Interval history: He is doing well. He did have instability with therapy. The recommendations are pending. He denies headache, or confusion. No dyspnea. Exam Vital Signs (past 8 hours): - 06/21/23 03:00 06/21/23 07:00 Temperature 97.2 F L 97.6 F Pulse Rate 73 72 Respiratory Rate 16 18 Blood Pressure 134/77 158/90 H Pulse Oximetry 92 93 Oxygen Flow Rate 0 0 Oxygen Delivery Method Room Air Oxygen Flow Rate 0 Narrative Exam Narrative: Alert and oriented x3, no distress, fluent speech. Cranial nerves are intact, speech is normal, no facial droop. Lungs are clear, normal effort. Heart is regular, with a 4/6 systolic murmur. History of aortic valve replacement. Abdomen is soft, non-distended. Extremities are free of edema. Negative pronator drift. Objective ECG Impression: Normal sinus rhythm. Imaging CT scan - head: Radiologist's impression: IMPRESSION: Narrowing of the left M1 segment, 60-70%. Focal calcification with narrowing involving the right V4 segment, approximately 70%. There is 60-70% narrowing involving the right internal carotid artery origin, with 50% narrowing involving the left carotid artery origin. Additional findings: type origin of the right posterior cerebral artery Tortuous distal extracranial internal carotid arteries Lower cervical spine degenerative change Sternotomy wires MRI - head: Radiologist's impression: 1. Scattered tiny foci of acute infarct within the right frontal and parietal lobe. Small acute infarct within the right paramedian elayne. Findings are favored to represent an embolic source. 2. Focus of elevated signal on DWI in the right frontal lobe is favored to represent T2 shine through and not acute infarct. 3. Eight fatigue global volume loss and chronic microvascular ischemic changes. Labs 06/20/23 21:00 06/21/23 05:28 Labs: Laboratory Results - last 24 hr 06/20/23 06/20/23 06/20/23 11:35 12:00 13:50 WBC 8.3 RBC 5.79 Hgb 16.9 Hct 49.6 MCV 85.6 MCH 29.2 MCHC 34.1 RDW 14.9 H Plt Count 148 L Neut % (Auto) 68.7 Lymph % (Auto) 17.5 L [place] % (Auto) 10.6 Eos % (Auto) 2.7 Baso % (Auto) 0.5 Neut # (Auto) 5700 Lymph # (Auto) 1500 [place] # (Auto) 900 Eos # (Auto) 200 Baso # (Auto) 0 Platelet Estimate RBC Morphology PT 11.5 INR 1.0 APTT 34 Sodium 137 Potassium 3.8 Chloride 100 Carbon Dioxide 28 BUN 23 H Creatinine 1.23 Estimated GFR > 60 BUN/Creatinine Ratio 18.7 Glucose 125 H Hemoglobin A1c Calcium 9.6 Magnesium 2.0 Total Bilirubin 1.0 AST 24 ALT 18 Alkaline Phosphatase 75 Total Creatine Kinase 31 L 33 L Troponin I 0.156 H* 0.153 H* Total Protein 7.4 Albumin 4.3 Globulin 3.1 Albumin/Globulin Ratio 1.4 Urine Color Yellow Urine Appearance Clear Urine pH 5.0 Ur Specific [place] 1.015 Urine Protein Negative Urine Glucose (UA) Negative Urine Ketones Negative Urine Occult Blood Negative Urine Nitrate Negative Urine Bilirubin Negative Urine Urobilinogen 0.2 Ur Leukocyte Esterase Negative Urine RBC None seen Urine WBC 0-1/hpf Ur Squamous Epith Cells 1-5 /hpf Urine Bacteria None seen Urine Mucus 1+ H Ur Culture Indicated? Cult not indicated Ethyl Alcohol < 10 06/20/23 06/21/23 21:00 05:28 WBC 8.0 RBC 5.64 Hgb 16.7 Hct 48.5 MCV 85.9 MCH 29.6 MCHC 34.5 RDW 15.0 H Plt Count 149 L Neut % (Auto) 63.8 Lymph % (Auto) 20.1 L [place] % (Auto) 12.8 Eos % (Auto) 2.7 Baso % (Auto) 0.6 Neut # (Auto) 5100 Lymph # (Auto) 1600 [place] # (Auto) 1000 H Eos # (Auto) 200 Baso # (Auto) 0 Platelet Estimate Adeq RBC Morphology See below PT INR APTT Sodium 135 L Potassium 3.5 Chloride 99 Carbon Dioxide 27 BUN 21 H Creatinine 1.01 Estimated GFR > 60 BUN/Creatinine Ratio 20.8 Glucose 104 Hemoglobin A1c 6.9 H Calcium 9.3 Magnesium Total Bilirubin 1.0 AST 23 ALT 18 Alkaline Phosphatase 66 Total Creatine Kinase Troponin I Total Protein 7.1 Albumin 3.9 Globulin 3.2 Albumin/Globulin Ratio 1.2 Urine Color Urine Appearance Urine pH Ur Specific [place] Urine Protein Urine Glucose (UA) Urine Ketones Urine Occult Blood Urine Nitrate Urine Bilirubin Urine Urobilinogen Ur Leukocyte Esterase Urine RBC Urine WBC Ur Squamous Epith Cells Urine Bacteria Urine Mucus Ur Culture Indicated? Ethyl Alcohol PFSH Medical History Aortic stenosis Hypertension Endocarditis Surgical History History of aortic valve replacement History of bilateral hip arthroplasty History of cataract surgery History of tonsillectomy Family History Mother Congestive heart failure Father Congestive heart failure Social History household members: none Smoking Status: Former smoker alcohol intake: current Assessment & Plan Assessment & Plan narrative: 1. Right frontal and parietal embolic stroke, present on admission and active. Patient has evidence of internal carotid stenosis at 70% by CTA and this is likely the embolic source. We will obtain a carotid duplex ultrasound to further characterize and likely discuss with vascular later today. Continue aspirin until discussing with vascular. 2. Aortic valve replacement remotely, present on admission and stable. 3. Essential hypertension, present on admission and stable. Plan: The patient will either be treated with dual antiplatelet therapy or vascular surgery more urgently depending on the conversation. The patient is on statin chronically. Physical therapy will continue working with patient to assess for his discharge needs which are unclear at this time. Time Spent With Patient Time with patient: 30 to 49 minutes with 50% spent counseling/coordinating care Quality VTE Deep Vein Thrombosis/Pulmonary Embolism Present on Admission: No
[2023-06-21 11:00] VITALS: BP 110/77; PULSE 64
--- NOTE | 2023-06-21 11:32 | ST.IPIE ---
Visit Care Team Role Provider Type Faiza Gunn PA-C Primary Care Provider Advanced Burrer Operator Specialty: Medical Address: [address] [place] [address], [id number] Email: Ant Cortes DO Emergency Provider Physician Referring Provider Specialty: Emergency Medicine Address: [address] [place] [address], [id number] Email: [email or web address] Admit Provider Physician Attending Provider Specialty: Internal Medicine Address: [address] [place] [address] [address], [place], [address] Email: [email or web address] Diagnoses Transient cerebral ischemic attack, unspecified (06/20/23) Past Medical History (Last Reviewed 06/20/23 @ 12:16 by Ant Cortes DO) Aortic stenosis (Medical) Endocarditis (Medical) Hypertension (Medical) ST IP Initial Evaluation 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 Setting Assessment Location Acute Care Patient Information Identification Type Name Patient History Pt with PMHx significant for: Aortic stenosis, Hypertension, Endocarditis, History of aortic valve replacement, History of bilateral hip arthroplasty, History of cataract surgery, History of tonsillectomy. Per H&P on 06/20/23: The patient is a 78-year-old male with no history of TIA or stroke. He presented with acute weakness this morning and notes he had a hard time getting out of bed. He also notes that his speech was abnormal. This began yesterday morning was symptoms . The patient notes that the weakness and inability to move around have been persistent since yesterday. He does not give a clear specific history of aphasia. He also can not state that 1 arm or leg is weaker than the other. It sounds as though he was having axial weakness trying to get himself out of bed. He denies a fall, or headache. He also denies visual changes. He has no history of TIA or stroke. He does have a history of rhabdomyolysis in the past which felt similar with resulting generalized weakness. He does have a history of an aortic valve replacement x2 in [place]. He takes aspirin 81 mg daily. His NIH score in the ER was 3, it was 0 here. He has no neurologic complaints upon interview. Pt referred for ST evaluation d/t Pt presenting with aphasia , dysarthria and stroke-like symptoms. Hearing Hearing Level Normal Subjective Patient Report Pt sitting upright in recliner in room. Pt awake, alert and agreeable to ST evaluation. Pt oriented x3. Pt reports yesterday speech was weak and mumbly, however has resolved back to baseline with Pt denying any word finding, oral weakness or speech difficulties. Mental Status Alert,Responsive,Cooperative Assessment Oral Motor Examination Completed Yes Results Oral motor exam completed during evaluation. Pt oromusculature appeared WFL in regards to lingual, labial and buccal strength and ROM. Pt reports he wears dentures, however has 4 natural teeth. Informal Assessment Receptive Language Normal Yes Expressive Language Normal Yes Pragmatic Language Normal Yes Speech Normal Yes Cognition Normal Yes Formal Assessment Standardized Test/Screener Type Quick Aphasia Battery (QAB) Administration Complete Results ST administered Quick Aphasia Battery (QAB) with Pt scoring a total score of 9.95 indicating a severity rating of no aphasia. Pt scored the following on each section: Word [id number] Sentence [id number] Word .00 Grammatical construction9.88 Speech motor [id number] Repetition9.58 Gbsaelq95.00 QAB overall9.95 Pt demonstrated difficulties with long sentence repetition, however may be more due to memory difficulties vs speech/ language impairment. Findings/Results Language Function Within normal limits Cognitive Function Within normal limits Findings Pt presents with WFL receptive /expressive language and WFL cognitive-linguistic abilities . ST recommends new order be put in if Pt symptoms worsen or Pt presents with speech/ language/cognitive abilities that differ from baseline. 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 Setting Assessment Location Acute Care Patient Information Identification Type Name History Pt with PMHx significant for: Aortic stenosis, Hypertension, Endocarditis, History of aortic valve replacement, History of bilateral hip arthroplasty, History of cataract surgery, History of tonsillectomy. Per H&P on 06/20/23: The patient is a 78-year-old male with no history of TIA or stroke. He presented with acute weakness this morning and notes he had a hard time getting out of bed. He also notes that his speech was abnormal. This began yesterday morning was symptoms . The patient notes that the weakness and inability to move around have been persistent since yesterday. He does not give a clear specific history of aphasia. He also can not state that 1 arm or leg is weaker than the other. It sounds as though he was having axial weakness trying to get himself out of bed. He denies a fall, or headache. He also denies visual changes. He has no history of TIA or stroke. He does have a history of rhabdomyolysis in the past which felt similar with resulting generalized weakness. He does have a history of an aortic valve replacement x2 in [place]. He takes aspirin 81 mg daily. His NIH score in the ER was 3, it was 0 here. He has no neurologic complaints upon interview. Pt referred for ST evaluation d/t Pt presenting with aphasia , dysarthria and stroke-like symptoms. Reported by Patient/Caregiver Pain/Discomfort No Comment Nursing reports Pt with no observed swallowing difficulties and swallowing pills whole in water without difficulties. Pt denies any swallowing difficulties, however reports he coughs all the time when eating/ drinking and when not eating/ drinking. Current Diet Regular (IDDSI 7) Baseline Feeding Method Independent in self-feeding The IDDSI Framework Protocol: IDDSI.1 Objective Assessment Mental Status Alert,Responsive,Cooperative Oral Integrity WFL Dentition Upper dentures/partials,Lower dentures/partials Lip Function Within normal limits Observation of Lips at Rest Symmetrical Pucker Within normal limits Lip Retraction Within normal limits Alternating Pucker/Lip Retraction Within normal limits Tongue Function Within normal limits Tongue Protrusion Within normal limits Comment Oral motor exam completed upon time of evaluation. Pt demonstrated WFL oral motor function, specifically ROM and strength of labial, lingual and buccal musculature. Food and Liquid Trials Position During Assessment Upright (90 degrees) Liquids Trialed Thin (IDDSI 0) Solid Trials Regular (IDDSI 7) Administration Type Cup consecutive sips,Straw Oral Impairment Within normal limits Oral Phase Comments Pt consumed 2 oz of thin milk via cup and 4 oz of thin water via straw. Pt demonstrated adequate sip size and rate, good oral acceptance and containment, timely ap transport. Pharyngeal Impairment Within functional limits Pharyngeal Phase Comments Pt demonstrated suspected delay in swallow, no overt s/s of aspiration. Pt with 1x immediate cough reflex with all trials, however inconsistent cough throughout evaluation with ST unable to determine if d/t solids vs liquids vs baseline cough. Fatigue/Endurance Endurance WNL The IDDSI Framework Protocol: IDDSI.1 Findings Swallowing Function Within functional limits Swallowing Function Comments Pt presents with WFL oral and pharyngeal dysphagia. Severity of Swallow Impairment Within functional limits Prognosis Good Based on Cognitive status Recommendations Instrumental Assessment No Swallowing Treatment No Recommended Solids Regular (IDDSI 7) Recommended Liquids Thin (IDDSI 0) Safety Precautions/Swallowing Remain upright (90 degrees) Recommendations during all oral intake,Upright position at least 30 minutes after meals,Small bites and sips when eating,Slow rate; swallow between bites, Alternate liquids and solids Medication Recommendations As Tolerated Discharge Recommendations Home Education Patient/Caregiver Education Described results of evaluation,Patient expressed understanding of evaluation
--- NOTE | 2023-06-21 12:00 | OT.IP.EVAL ---
Current Diagnoses Transient cerebral ischemic attack, unspecified (06/20/23) Past Medical History (Last Reviewed 06/20/23 @ 12:16 by Ant Cortes DO) Aortic stenosis Endocarditis Hypertension Surgical History (Last Reviewed 03/26/23 @ 17:59 by Evette Carter PA-C) History of aortic valve replacement History of bilateral hip arthroplasty History of cataract surgery History of tonsillectomy Occupational Therapy Inpatient Evaluation/Re-Eval M1 PT/OT-IP Prior Functional Status Start: 06/21/23 12:13 Freq: NEEDED Status: Active Protocol: Document 06/21/23 10:33 [facility] (Rec: 06/21/23 12:58 [facility] [id number]) Medical Review Prior Functional Status Medical History Reviewed Yes Communication independent Mobility and Gait Independent and did not use a device. Activities of Daily Living and IADL's Pt states completely independent with all ADL , IADl , able to julian/doff compression stocking with a device, and drives. Prior Functional Level (Other details) Pt states had rhabdo one year ago and states since then has been a little unsteady but safe on his feet. Social History Household Members none Living Arrangements House Number of Floors (Floors) One Floor Number of Stairs To Enter/Railing? 2 steps with rail or ramp. Home Environment Standard Height Toilet,Walk in Shower Home Equipment Long Handled Shoe Horn,Sock Aid Additional Social History Comment Pt has a compression sock aid he uses at home. M2 OT-IP Current Condition Start: 06/21/23 12:13 Freq: Status: Active Protocol: Document 06/21/23 10:33 [facility] (Rec: 06/21/23 12:58 [facility] [id number]) Occupational Therapy Current Condition Current Condition Evaluation Date 06/21/23 Treatment Diagnosis CVA Diagnosis Onset Date 06/20/23 M3 OT- IP Subjective and Pain Start: 06/21/23 12:13 Freq: Status: Active Protocol: Document 06/21/23 10:33 [facility] (Rec: 06/21/23 12:58 [facility] [id number]) OT- Subjective Occupational Therapy Visit Type Type Initial Evaluation Visit Start Time 10:33 Visit Stop Time 12:00 Total Visit Minutes 87 Occupational Therapy Visit Comments Patient Comments Pt agreed to work with OT and wanting to take a shower. Patient/Caregiver Goals TO go home. OT Pain Assessment Pain When Pain Assessed At Rest Pain Present Pain Present Denied Pain M4 OT- IP ADL's Start: 06/21/23 12:13 Freq: Status: Active Protocol: Document 06/21/23 10:33 [facility] (Rec: 06/21/23 12:58 [facility] [id number]) OT [id number] Comments OT Self-Feeding Comments Not at meal time. OT ADL-Grooming Comments OT Grooming Comments Not performed. OT ADL-Oral Care Comments Oral Care Comments Not performed. OT ADL-Dressing General Eval Lower Body Dressing Ability Minimal Assistance Comments OT Dressing Comments Assist to julian socks. Pt standing to take off his socks and needing to hold onto grab bars for safety and therapist CGA. Educated best for pt to sit for LB dressing needs and use a automotive product specialist to assist. OT ADL-Toileting General Evaluation Toileting Ability Standby Assistance Comments OT Toileting Comments Pt able to stand to urinate with CGA for balance. OT ADL-Bathing General Evaluation Bathing Ability Minimal Assistance,Moderate Assistance Areas Needing Assistance Wash/Dry Back,Wash/Dry Lower Extremities Comments OT Bathing Comments Pt needing assist for his back and to dry his left lower leg . M5 OT- IP IADL's Start: 06/21/23 12:13 Freq: Status: Active Protocol: Document 06/21/23 10:33 [facility] (Rec: 06/21/23 12:58 [facility] [id number]) OT-Instrumental Activities of Daily Living Deficits IADL Deficits Identified Deficits Home Safety Awareness Awareness of Need for Assistance at Home Decreased Awareness Home Safety Comments At this time would be best for pt to have at least supervision and assist for especially dressing, showering and IADL needs due to decreased safety awareness and dynamic balance. Medication Management Medication Management Comments Pt would benefit from supervision/assist at this time. Money Management Money Management Comments Pt would benefit from supervision. Meal Preparation Meal Preparation Comments Pt would benefit from supervision. Land Manager Land Manager Comments Pt would benefit from assist. Driving Driving Concerns Identified Regarding Safety M6 OT- IP Functional Cognition Start: 06/21/23 12:13 Freq: Status: Active Protocol: Document 06/21/23 10:33 [facility] (Rec: 06/21/23 12:58 [facility] [id number]) Cognitive Factors Limiting Selfcare Function Cognitive Ability Level of Alertness Alert Patient Orientation Name,Age,Birthday,Month,Date, Year,Day of Week,Place Attention Span Ability Capable of Focused Attention, Capable of Sustained Attention Ability to Follow Commands Able to Follow Multi-Step Commands Memory Description Short Term Impaired Safety Awareness Underestimates Need for Assistance Cognitive Comments Cognitive Assessment Comments Pt scored 128 seconds on Arnett Making Part B which is 40% for his age and implies moderate impairments for visual attention, speed of processing, task switching, executive functioning, and mental flexibility. Pt needing cues for safety for FWW use and for bed mobility techniques. OT- Vision and Hearing OT- Hearing Assessment OT- Hearing Assessment WFL OT- Vision Assessment Visual Acuity WFL Visual Attentiveness WFL Occular Pursuits Impaired Vertical Visual Convergence WFL Visual Pardo WFL Vision Assessment Comments When pt tires his left eye slips up and to the left. Pt states has had eye surgery in the past for his both eyes for the muscles on both sides. Pt states has no issues and has learned to adapt. M7 OT- IP Mobility and Balance Start: 06/21/23 12:13 Freq: Status: Active Protocol: Document 06/21/23 10:33 [facility] (Rec: 06/21/23 12:58 [facility] [id number]) OT- Bed Mobility Assessment Supine to Sit Supine to Sit Assist Standby Assistance,Contact Guard Assistance,Bedrails Sit to Supine Sit to Supine Assist Standby Assistance Scooting Scooting to Edge of Bed Standby Assistance OT-Transfer Assessment Sit to and From Stand Sit to and from Stand Contact Guard Assistance Transfers Transfer Ability Standby Assistance,Contact Guard Assistance Technique Transfer Destination Bed,Chair,Shower Stall Transfer Technique Stand Step Pivot Devices Transfer Assistive Devices None,Gait Belt,Front Wheeled Walker,4 Wheeled Walker Comments Mobility Comments Pt needing education to roll over to side lying so able to increased his ease to get up. In addition pt states has a grab bar on the other side of the bed on the wall which can be moved to the left side of his bed. CGA to close SBA to stand. CHRISTY without a device and pt tends to sway to the right when up on his feet. Pt able to use FWW with SBA and occasional sway to the right and able to try the 4ww as well as pt likes to ride the brakes when moving. At this time the FWW is safer for the pt to use. OT- Balance Assessment Sitting Balance and Reactions Static Sitting Balance Ability Good Dynamic Sitting Balance Ability Fair Standing Balance and Reactions Static Standing Balance Ability Fair Dynamic Standing Balance Ability Poor M8 OT- IP Objective Assessments Start: 06/21/23 12:13 Freq: Status: Active Protocol: Document 06/21/23 10:33 [facility] (Rec: 06/21/23 12:58 [facility] [id number]) OT Gross Range of Motion Upper Extremity Range of Motion ROM Impairments LUE decreased at end ROM. OT Strength Upper Extremity Strength Assessment Left Impaired Comments Strength Comments LUE slight decreased 4/5 to 4+ /5. OT- Coordination Assessment Upper Extremity Finger to Nose Test Left UE Impaired Comments Coordination Comments Left hand having move difficulty and needing increased time. 9 hole peg test right hand 33 seconds which implies just about 10th percentile for his age and [address] below 10th percentile for his age. OT Sensation Assessment Comments Summary Comments Intact for light touch and decreased for proprioception and kinesthesia for left hand. M9 OT- IP Assessment and Plan Start: 06/21/23 12:13 Freq: Status: Active Protocol: Document 06/21/23 10:33 [facility] (Rec: 06/21/23 12:58 [facility] [id number]) OT Summary Assessment and Plan Potential Rehabilitation Potential Good Analytic Complexity at Evaluation Moderate Summary OT Impairments Range of Motion,Strength, Balance,Coordination, Functional Cognition, Functional Mobility,Dressing, Toileting,Bathing,Toilet Transfers,Shower Transfers, Activity Tolerance Progress Towards Goals Progressing Toward Goals Assessment Summary Pt MOD complexity and main barriers are steps, dynamic balance, decreased core strength and body awareness and now would benefit from someone to stay with him at home to assist with his needs especially for bathing and IADL needs. Pt scored 128 seconds on which implies moderate deficits for visual attention, executive functioning, mental flexibility , task switching, and speed of processing. At this time suggested pt to not drive at this time. Pt also having difficulty with his hand coordination right hand at about 10th percentile (33sec) for his age and way under 10th percentile for left hand ( 53sec). Able to give pt a list of FMS activites to help increase his FMS. Pt noted saliva dripping out of his mouth while showering and pt states is not anything new for him, hospitalist notified. Pt wanting to go home and will greatly benefit from use of FWW , shower chair, and someone to stay with him. Pt will also benefit from outpt PT and OT. Hopefully pt progresses well and to be able to go home. However if pt end up still evolving from CVA, would benefit from acute rehab. Goals Self-Feeding Goal Independent Grooming Goal Independent Dressing Goal Independent Toileting Goal Independent Bathing Goal Independent Toilet Transfer Goal Independent Shower Transfer Goal Independent Days to Meet Goals 15 Frequency of Treatment Frequency Of Treatment Once a Day Treatment Plan OT Treatment Plan ADL Training,Functional Cognition Training,Functional Mobility,Therapeutic Exercises ,Patient/Family Education, Discharge Planning Discharge Recommendations OT Discharge Recommendations Home with Assistance, Outpatient PT Home Equipment Needs shower chair, fww Transportation Needs at Discharge Private Vehicle
--- NOTE | 2023-06-21 12:15 | CM.DANOTE ---
Reviewed EMR and team rounds for pt's medical status and anticipated d/c needs. Met with pt at bedside to introduce and role. Pt found to be alert, oriented, still experiencing slower extremity movement in his left hand, speech is appropriate but slow. Sister will be primary cg at d/c. Payor: Medicare PCP: Faiza Gunn Pt is a 78 year-old M who presented in the ED on 06/20 for new weakness, balance issues and aphasia. He was admitted for further eval and tx for possible stroke vs. TIA. MRI/brain imaging demonstrates indications of an ischemic stroke. Pt is working with therapies this am, will most likely d/c later this afternoon, no anticipated d/c needs. Discharge Planning/Care Management CM Discharge Assessment Start: 06/21/23 11:25 Freq: Status: Active Protocol: Document 06/21/23 11:25 [facility] (Rec: 06/21/23 12:15 [facility] [id number]) Discharge Planning Assessment Assigned Translator Interpreter RICHARD Lerma Advance Directives? Yes Advance Directives on File No History Provided By Patient,Medical Record Has Patient been admitted in last 30 No days? Prior Living Arrangements House Household Members none Comment Pt does have family who live nearby, sister will be cg at home upon d/c. Type of transporation used prior to Drives own vehicle admit Independent with ADL's Yes Is patient alert and oriented? Yes Comment N/A Comment N/A Comment No anticipated d/c needs indicated at this time. Barriers to Discharge No Discharge Plan Home Transportation Arrangement Sister Referrals Initiated None needed Whiteboard Updated in Patient Room with Yes name and ext. # of Translator Interpreter Review Status In Process Please Provide Date Initial DC 06/21/23 Assessment Was Performed
--- NOTE | 2023-06-21 14:14 | PM.DS.1 ---
History of Present Illness History of Present Illness Date Patient Seen: 06/21/23 Time Patient Seen: 14:14 Chief complaint: Weakness Narrative: The patient is a 78-year-old male with no history of TIA or stroke. He presented with acute weakness since this morning and notes he had a hard time getting out of bed. He also notes that his speech was abnormal. This began yesterday morning was symptoms. The patient notes that the weakness and inability to move around have been persistent since yesterday. He does not give a clear specific history of aphasia. He also can not state that 1 arm or leg is weaker than the other. It sounds as though he was having axial weakness trying to get himself out of bed. He denies a fall, or headache. He also denies visual changes. He has no history of TIA or stroke. He does have a history of rhabdomyolysis in the past which felt similar with resulting generalized weakness. He does have a history of an aortic valve replacement x2 in [place]. He takes aspirin 81 mg daily. His NIH score in the ER was 3, it was 0 here. He has no neurologic complaints upon interview. Discharge Providers Provider Date of admission: 06/20/23 14:46 Discharge Date: 06/21/23 Primary care physician: Faiza Gunn PA-C Consults: 06/20/23 16:12 Consult to Discharge Planning Routine Comment: Consult to Occupational Therapy Evaluate & Treat Comment: Physician Instructions: Evaluate and treat Consult to Physical Therapy Evaluate & Treat Comment: Physician Instructions: Evaluate and Treat Consult to Speech Therapy Evaluate & Treat Comment: Physician Instructions: Evaluate and treat Discharge provider: Mehrdad Carey MD Summary Hospital Course Discharge Diagnosis: 1. Right frontal and parietal stroke, embolic. 2. Right internal carotid stenosis, 70% by CTA. 3. Aortic stenosis with history of aortic valve replacement x2, bioprosthetic. 4. Essential hypertension 5. Remote endocarditis Hospital Course: The patient presented with vague stroke-like symptoms including speech change and possible weakness. Initial CT of the brain was negative for stroke but CTA revealed a 70% right ICA stenosis. MRI confirmed embolic appearing small infarcts in the right frontal and parietal lobes. The patient is on chronic aspirin and statin. He has a history of bioprosthetic valve replacement with a revision by Dr. Maldonado in [place]. The patient had improvement of neurologic symptoms but still had significant truncal ataxia on June 21. Imaging studies were discussed with Dr Villalta, vascular surgeon at [facility]. She recommended consideration of an acute carotid endarterectomy. This would require transfer, the transfer center was contacted and the patient agreed to a hospital to hospital transfer for presumptive carotid endarterectomy. Dual antiplatelet therapy was avoided until this transfer and consultation with vascular surgery for a potential pending carotid endarterectomy. Status at Discharge Cognitive/behavioral status at discharge: oriented Functional status at discharge: uses cane/walker Overall status at discharge: patient is progressing back to baseline Time Spent with Patient Time spent: Greater than 30 minutes Exam Vital Signs (past 8 hours): - 06/21/23 07:00 06/21/23 11:00 Temperature 97.6 F Pulse Rate 72 64 Respiratory Rate 18 Blood Pressure 158/90 H 110/77 Pulse Oximetry 93 Oxygen Flow Rate 0 Oxygen Delivery Method Room Air Oxygen Flow Rate 0 Narrative Exam Narrative: No acute distress, the speech is normal. No facial droop. Lungs are clear, normal effort. Heart is regular with a 4/6 systolic murmur. Abdomen is distended non-tender. Extremities are free of edema. 5/5 motor strength of arms and legs. Slight slurring of speech. Axial instability is noted by Physical therapy. He was able to ambulate with assistance with a walker. Objective ECG Impression: NSR Imaging CT scan - head: Radiologist's impression: IMPRESSION: Narrowing of the left M1 segment, 60-70%. Focal calcification with narrowing involving the right V4 segment, approximately 70%. There is 60-70% narrowing involving the right internal carotid artery origin, with 50% narrowing involving the left carotid artery origin. Additional findings: type origin of the right posterior cerebral artery Tortuous distal extracranial internal carotid arteries Lower cervical spine degenerative change Sternotomy wires MRI - head: Radiologist's impression: 1. Scattered tiny foci of acute infarct within the right frontal and parietal lobe. Small acute infarct within the right paramedian elayne. Findings are favored to represent an embolic source. 2. Focus of elevated signal on DWI in the right frontal lobe is favored to represent T2 shine through and not acute infarct. 3. Eight fatigue global volume loss and chronic microvascular ischemic changes. Labs 06/20/23 21:00 06/21/23 05:28 Labs: Laboratory Results - last 24 hr 06/20/23 06/20/23 06/21/23 13:50 21:00 05:28 WBC 8.0 RBC 5.64 Hgb 16.7 Hct 48.5 MCV 85.9 MCH 29.6 MCHC 34.5 RDW 15.0 H Plt Count 149 L Neut % (Auto) 63.8 Lymph % (Auto) 20.1 L Banner % (Auto) 12.8 Eos % (Auto) 2.7 Baso % (Auto) 0.6 Neut # (Auto) 5100 Lymph # (Auto) 1600 Banner # (Auto) 1000 H Eos # (Auto) 200 Baso # (Auto) 0 Platelet Estimate Adeq RBC Morphology See below Sodium 135 L Potassium 3.5 Chloride 99 Carbon Dioxide 27 BUN 21 H Creatinine 1.01 Estimated GFR > 60 BUN/Creatinine Ratio 20.8 Glucose 104 Hemoglobin A1c 6.9 H Calcium 9.3 Total Bilirubin 1.0 AST 23 ALT 18 Alkaline Phosphatase 66 Total Creatine Kinase 33 L Troponin I 0.153 H* Total Protein 7.1 Albumin 3.9 Globulin 3.2 Albumin/Globulin Ratio 1.2 PFSH Medical History Aortic stenosis Hypertension Endocarditis Surgical History History of aortic valve replacement History of bilateral hip arthroplasty History of cataract surgery History of tonsillectomy Family History Mother Congestive heart failure Father Congestive heart failure Social History household members: none Smoking Status: Former smoker alcohol intake: current Discharge Assessment & Plan Assessment and Plan Assessment: 1. Right frontal and parietal stroke, embolic. 2. Right internal carotid stenosis, 70% by CTA. 3. Aortic stenosis with history of aortic valve replacement x2, bioprosthetic. 4. Essential hypertension 5. Remote endocarditis Plan of Treatment: Transferred to [facility] for ongoing care and vascular surgery consultation for presumptive carotid endarterectomy on the right. Discharge Plan Discharge Plan Patient Disposition: [facility] Other facility: [facility] Discharge orders & Medications Medication counseling provided by Pharmacist: No Discharge Health Status Multidrug resistant organism: No MDRO Diet/Activity/Treatments Diet: Diet as Tolerated Visit Report/Discharge Packet Instructions: Transient Ischemic Attack, Ischemic Stroke Discharge Data Primary Care Provider: Faiza Gunn Quality VTE Deep Vein Thrombosis/Pulmonary Embolism Present on Admission: No MIPS - DC The patient has a history of heart transplant or Left Ventricular Assist Device (LVAD). If yes, STOP here.: No The patient has current or prior documentation of left ventricular ejection fraction (LVEF) less than or equal to 40%, or moderate or severely depressed left ventricular systolic function.: No
[2023-06-21 15:00] VITALS: RESP 20; O2SAT 96
--- NOTE | 2023-06-21 16:02 | PC.NURSE ---
Addendum entered by Erica Rebollar R.N. 06/21/23 17:38: NWA here for tansport. Pt report given Pt escorted to waiting vehicle, tranporting to [facility]. for higher level of care. D/C in stable condition. Addendum entered by Erica Rebollar R.N. 06/21/23 17:18: Pt RM aavailable @ [facility]. Report called to [facility] Awaiting transportation. Original Note: Pt sitting in chair most day, Denies discomfort. Tele intact, NSR HL intact/patent. ' Call light w/in reach, pt calls appropriately for needs COntinue w/plan of care.
== END 2023-06-21 17:40 | disposition short-term general hospital (02) | DRG 65 ==
LOC: ED 14:46 → AC 14:47
PROVIDERS: Admitting Provider Hospitalist; Emergency Provider Emergency Medicine; PCP Physician Assistant; Referring Provider Emergency Medicine; Visit Provider Hospitalist
DX: I63.40 Cerebral infarction due to embolism of unspecified cerebral artery (principal); I38 Endocarditis, valve unspecified; R29.703 NIHSS score 3; I10 Essential (primary) hypertension; I35.0 Nonrheumatic aortic (valve) stenosis; R47.01 Aphasia; I65.21 Occlusion and stenosis of right carotid artery; R29.700 NIHSS score 0; Z87.891 Personal history of nicotine dependence; Z95.2 Presence of prosthetic heart valve
CPT/HCPCS: 36415; 70450; 70496; 70498; 70551; 71045; 80053; 80320; 81001; 82550; 82962; 83036; 83735; 84484; 85025; 85610; 85730; 92523; 92610; 93005; 93010; 97162; 97166; 97530; 97535; 99284; 99285; J1644

== ENCOUNTER 2023-09-05 08:29 | Emergency (ER) | payer MEDICARE, OTHER, SELFPAY ==
[2023-06-20 16:26] VITALS: BMI 34.9
[2023-09-05 08:34] VITALS: BP 150/80; PULSE 84; RESP 16; TEMP 36.2; O2SAT 96; BMI 33.4
--- NOTE | 2023-09-05 09:05 | ED.GENADULT ---
HPI - General Adult General Chief complaint: Urogenital-Male Stated complaint: needs a urinary catheder sent from dr Oakes Seen by Provider: 09/05/23 08:42 Source: patient Mode of arrival: Ambulatory History of Present Illness HPI narrative: Patient is a 78-year-old male. Has a known history of an enlarged prostate. Is scheduled for a TURP next month. Is under the care urology. He has had urinary frequency. He was going on a trip so he purchased a clamp that he put over his penis to try to help with this. He states that since that time he has been unable to urinate. He has removed clamp. His last urination was approximately 24 hours ago. He was quite a bit of pressure in his lower abdomen. He has never had a urinary catheter in the past. Related Data Home Medications Medication Instructions Recorded Confirmed carvedilol 6.25 mg tablet (Coreg) 6.25 mg PO BID ##0 09/21/16 06/20/23 furosemide 20 mg tablet (Lasix) 20 mg PO QDAY ##0 09/21/16 06/20/23 ascorbic acid (vitamin C) 1 tab PO DAILY 03/26/23 06/20/23 aspirin 81 mg tablet,delayed 81 mg PO DAILY 03/26/23 06/20/23 release (Adult Aspirin Regimen) atorvastatin 20 mg tablet 20 mg PO DAILY 03/26/23 06/20/23 potassium chloride 10 mEq 10 meq PO DAILY 03/26/23 06/20/23 tablet,extended release(part/cryst) (Klor-Con M) tamsulosin 0.4 mg capsule 0.4 mg PO DAILY 03/26/23 06/20/23 vitamin B complex [B 1 tab PO DAILY 03/26/23 06/20/23 Complex-Vitamin B12] zinc acetate 1 tab PO DAILY 03/26/23 06/20/23 Allergies Allergy/AdvReac Type Severity Reaction Status Date / Time bee venom protein (honey bee) Allergy Mild localzed Verified 09/05/23 08:38 swelling adhesive tape Allergy Verified 09/05/23 08:38 cat dander Allergy Verified 09/05/23 08:38 dog dander Allergy Verified 09/05/23 08:38 mold Allergy Verified 09/05/23 08:38 pollen extracts Allergy Verified 09/05/23 08:38 Review of Systems Constitutional Constitutional: Reports system reviewed and no additional complaints, except as documented Gastrointestinal Gastrointestinal: Reports system reviewed and no additional complaints, except as documented Genitourinary Genitourinary: Reports system reviewed and no additional complaints, except as documented Integumentary/Breasts Skin/Breast: Reports system reviewed and no additional complaints, except as documented Patient History Medical History Aortic stenosis Hypertension Endocarditis Surgical History History of aortic valve replacement History of bilateral hip arthroplasty History of cataract surgery History of tonsillectomy Family History Mother Congestive heart failure Father Congestive heart failure Social History household members: none Smoking Status: Former smoker alcohol intake: current Smoking Status: Former smoker alcohol intake frequency: holidays/special occasions only Substance Use Type: does not use Exam Initial Vital Signs Initial Vital Signs: Vital Signs Temperature 97.2 F L 09/05/23 08:34 Pulse Rate 84 09/05/23 08:34 Respiratory Rate 16 09/05/23 08:34 Blood Pressure 150/80 H 09/05/23 08:34 Pulse Oximetry 96 09/05/23 08:34 Oxygen Delivery Method Room Air 09/05/23 08:34 Const General: cooperative and comfortable Resp Effort & Inspection: normal respiratory effort Cardio Rate: regular rate GI Inspection: distended Palpation: tender External: normal external exam and circumcised Skin General: no rashes or lesions noted Course Orders Ordered: ED Orders 09/05/23 09:54 Urine Microscopic Stat Discontinued Medications Lidocaine HCl (Lidocaine 2% (Glydo) 6 Ml Gel) 6 ml TOP NOW ONE Stop: 09/05/23 09:05 Last Admin: 09/05/23 09:19 Dose: 6 ml Documented By: JOHANNE Vital Signs Vital signs: Vital Signs - 8 hr 09/05/23 08:34 Temperature 97.2 F L Pulse Rate 84 Respiratory Rate 16 Blood Pressure 150/80 H Pulse Oximetry 96 Oxygen Delivery Method Room Air Medical Decision Making Lab Data Lab results reviewed: Yes I reviewed the patient's lab results. Labs: Urine Dip Bedside Urine Glucose Negative Bedside Urine Bilirubin - Negative Bedside Urine Ketone - Negative Urine Specific [place] 1.015 Bedside Urine Occult Blood +++ Bedside Urine pH 5.5 Bedside Urine Protein +/- 15 Bedside Urine Urobilinogen +/- 1mg Bedside Urine Nitrite - Negative Bedside Urine Leukocytes - Negative Esterase Point of care testing: Urine Dip Bedside Urine Glucose Negative Bedside Urine Bilirubin - Negative Bedside Urine Ketone - Negative Urine Specific [place] 1.015 Bedside Urine Occult Blood +++ Bedside Urine pH 5.5 Bedside Urine Protein +/- 15 Bedside Urine Urobilinogen +/- 1mg Bedside Urine Nitrite - Negative Bedside Urine Leukocytes - Negative Esterase MDM Narrative Medical decision making narrative: A urinary catheter was placed with return of clear urine. Urinalysis shows no signs of infection. Patient is afebrile. He is on Flomax. Plan will be to leave the urinary catheter in place. Will have him increase his Flomax to 2 times a day. Will have him contact his urologist for follow-up. He was given return precautions. He expressed understanding and agreement. Discharge Plan Departure Patient Disposition: Home Clinical Impression: Acute urinary retention Instructions: How to Care for Your Loya Catheter -- Male, DI for Urinary Retention in Men Activity Restrictions/Additional Instructions: Continue to take all of your medications as directed except increase your Flomax/tamsulosin from 1 time a day to 2 times a day. Recommend that you contact your urologist for a follow-up. Return to the emergency department for new symptoms. Prescriptions: No Action atorvastatin 20 mg tablet 20 mg PO DAILY tamsulosin 0.4 mg capsule 0.4 mg PO DAILY potassium chloride [Klor-Con M10] 10 mEq tablet,ER particles/crystals 10 meq PO DAILY vitamin B complex [B Complex-Vitamin B12] 1 tab PO DAILY ascorbic acid (vitamin C) 1 tab PO DAILY zinc acetate 1 tab PO DAILY aspirin [Adult Aspirin Regimen] 81 mg tablet,delayed release (DR/EC) 81 mg PO DAILY carvedilol [Coreg] 6.25 MG tablet 6.25 mg PO BID Qty: 0 furosemide [Lasix] 20 MG tablet 20 mg PO QDAY Qty: 0 Referrals: Faiza Gunn PA-C [Primary Care Provider] - Stand Alone Forms: Patient Portal/API
[2023-09-05] MEDS: LIDOCAINE 2% (GLYDO) 6 ML GEL TOP (09:19)
--- NOTE | 2023-09-05 09:23 | PC.NURSE ---
Pt unable to urinate post bladder scan
--- NOTE | 2023-09-05 09:25 | PC.NURSE ---
No injury noted to penis.
[2023-09-05 10:16] LABS: Bacteria Urine None Seen; RBC Urine 10-30/HPF (0-5/HPF); Squamous Epithelial Cell Urine None Seen (0-5/HPF); WBC Urine 0-1/HPF (0-5/HPF)
[2023-09-05 10:33] VITALS: BP 120/67; PULSE 82; RESP 30; TEMP 36; O2SAT 93
== END 2023-09-05 10:49 | disposition home or self-care (01) ==
PROVIDERS: Emergency Provider Emergency Medicine; PCP Physician Assistant
DX: R33.8 Other retention of urine (principal)
CPT/HCPCS: 51798; 81003; 81015; 99283; 99284

== ENCOUNTER → 2023-12-25 14:56 | Outpatient (CLI) | payer MEDICARE, OTHER, SELFPAY ==
[2023-06-20 16:26] VITALS: BMI 34.9
--- NOTE | 2023-12-25 14:58 | DI.RAD.S_ITS ---
PROCEDURE: XR CHEST 2V INDICATIONS: Cough TECHNIQUE: 2 views of the chest were acquired. COMPARISON: [facility], CR, XR CHEST 1V, 06/20/2023, 11:28. [facility], CR, XR CHEST 1V, 04/06/2022, 15:03. FINDINGS: Surgical changes and devices: Post median sternotomy. Aortic valve replacement. Lungs and pleura: Lungs are clear. No pleural effusions or pneumothorax. Mediastinum: Mediastinal contours are normal. Heart size is normal. Bones and chest wall: No suspicious bony abnormalities. Soft tissues appear unremarkable. IMPRESSION: No acute cardiopulmonary abnormality is seen. Dictated by: Morro Gabriel M.D. on 12/25/2023 at 20:19 Approved by: Morro Gabriel M.D. on 12/25/2023 at 20:21
== END ==
LOC: RAD 14:58
PROVIDERS: PCP Physician Assistant; Referring Provider Nurse Practitioner Family; Visit Provider Nurse Practitioner Family
DX: R05.9 Cough, unspecified (principal); Z95.2 Presence of prosthetic heart valve
CPT/HCPCS: 71046

== ENCOUNTER → 2024-01-08 14:02 | Outpatient (CLI) | payer MEDICARE, OTHER, SELFPAY ==
[2023-06-20 16:26] VITALS: BMI 34.9
[2024-01-08 14:56] LABS: BUN Creatinine Ratio 13.5 (6-22); Blood Urea Nitrogen 14 mg/dL (9-20); Calcium 9.3 mg/dL (8.4-10.2); Carbon Dioxide 33 mmol/L (22-32); Chloride 102 mmol/L (98-107); Estimated Glomerular Filt Rate > 60 mL/min (>60); Glucose 95 mg/dL (80-110); HEMOLYSIS < 15 (0-50); Sodium 140 mmol/L (137-145)
== END ==
PROVIDERS: PCP Physician Assistant; Referring Provider Internal Medicine Cardiovascular Disease; Visit Provider Internal Medicine Cardiovascular Disease
DX: I35.0 Nonrheumatic aortic (valve) stenosis (principal); I50.32 Chronic diastolic (congestive) heart failure; N18.32 Chronic kidney disease, stage 3b
CPT/HCPCS: 36415; 80048

== ENCOUNTER → 2024-01-14 14:50 | Outpatient (CLI) | payer MEDICARE, OTHER, SELFPAY ==
[2023-06-20 16:26] VITALS: BMI 34.9
--- NOTE | 2024-01-14 14:53 | DI.RAD.S_ITS ---
PROCEDURE: XR CHEST 2V INDICATIONS: COPD/COUGH TECHNIQUE: 2 views of the chest were acquired. COMPARISON: [facility], CR, XR CHEST 2V, 12/25/2023, 15:05. FINDINGS: Surgical changes and devices: Remote valve replacement Lungs and pleura: Lungs are clear. No pleural effusions or pneumothorax. Mediastinum: Mediastinal contours are normal. Heart size is top normal. Bones and chest wall: No suspicious bony abnormalities. Soft tissues appear unremarkable. IMPRESSION: No evidence acute pulmonary process. Dictated by: Uche Plata M.D. on 01/14/2024 at 16:09 Approved by: Uche Plata M.D. on 01/14/2024 at 16:10
== END ==
PROVIDERS: PCP Physician Assistant; Referring Provider Physician Assistant; Visit Provider Physician Assistant
DX: J44.9 Chronic obstructive pulmonary disease, unspecified (principal); R05.9 Cough, unspecified
CPT/HCPCS: 71046

== ENCOUNTER → 2024-02-05 08:23 | Outpatient (CLI) | payer MEDICARE, OTHER, SELFPAY ==
[2023-06-20 16:26] VITALS: BMI 34.9
== END ==
PROVIDERS: PCP Physician Assistant; Referring Provider Internal Medicine Critical Care Medicine; Visit Provider Internal Medicine Critical Care Medicine
DX: J44.9 Chronic obstructive pulmonary disease, unspecified (principal); F17.210 Nicotine dependence, cigarettes, uncomplicated; R94.2 Abnormal results of pulmonary function studies
CPT/HCPCS: 94060; 94726; 94729

== ENCOUNTER → 2024-03-26 06:55 | Outpatient (CLI) | payer MEDICARE, OTHER, SELFPAY ==
[2023-06-20 16:26] VITALS: BMI 34.9
--- NOTE | 2024-03-26 06:56 | DI.US.S_ITS ---
PROCEDURE: US ABDOMEN LIMITED INDICATIONS: THROMBOCYTOPENIA TECHNIQUE: Real-time scanning was performed of the abdominal and retroperitoneal organs, with image documentation. COMPARISON: None. FINDINGS: Liver: Liver is normal in size and homogeneous in echotexture. Gallbladder: Within normal limits. No pericholecystic fluid, gallbladder wall thickening or gallstone. Biliary ducts: Intrahepatic bile ducts are non-dilated. Extrahepatic bile duct caliber measures 5 mm. Pancreas: Visualized portions of the pancreas are sonographically normal. Spleen: Spleen is normal in size and homogeneous in echotexture. Miscellaneous: No free abdominal fluid. IMPRESSION: Normal abdominal ultrasound. Dictated by: Avery Decker M.D. on 03/26/2024 at 11:32 Approved by: Avery Decker M.D. on 03/26/2024 at 11:39
== END ==
PROVIDERS: PCP Physician Assistant; Referring Provider Physician Assistant; Visit Provider Physician Assistant
DX: D69.6 Thrombocytopenia, unspecified (principal)
CPT/HCPCS: 76705

== ENCOUNTER → 2025-01-18 11:05 | Outpatient (CLI) | payer MEDICARE, OTHER, SELFPAY ==
[2023-06-20 16:26] VITALS: BMI 34.9
[2025-01-18 11:48] LABS: Cholesterol 279 mg/dL (140-199); HDL Cholesterol 38 mg/dL (40-60); LDL Cholesterol Calculated 193 mg/dL (<100); Triglycerides 238 mg/dL (35-150)
== END ==
PROVIDERS: PCP Physician Assistant; Referring Provider Physician Assistant; Visit Provider Internal Medicine Cardiovascular Disease
DX: I25.10 Atherosclerotic heart disease of native coronary artery without angina pectoris (principal)
CPT/HCPCS: 36415; 80061

== ENCOUNTER → 2025-06-10 08:36 | Outpatient (CLI) | payer MEDICARE, OTHER, SELFPAY ==
[2023-06-20 16:26] VITALS: BMI 34.9
[2025-06-10 09:46] LABS: Cholesterol 167 mg/dL (140-199); HDL Cholesterol 43 mg/dL (40-60); Triglycerides 183 mg/dL (35-150)
== END ==
PROVIDERS: PCP Family Medicine; Referring Provider Internal Medicine Cardiovascular Disease; Visit Provider Internal Medicine Cardiovascular Disease
DX: I25.10 Atherosclerotic heart disease of native coronary artery without angina pectoris (principal)
CPT/HCPCS: 36415; 80061

== ENCOUNTER → 2025-07-25 16:56 | Outpatient (CLI) | payer MEDICARE, OTHER, SELFPAY ==
[2023-06-20 16:26] VITALS: BMI 34.9
== END ==
PROVIDERS: PCP Family Medicine; Visit Provider Nurse Practitioner Family
DX: R21 Rash and other nonspecific skin eruption (principal)
CPT/HCPCS: 87070; 87075; 87077; 87147; 87205